=== PATIENT | female | born 1955 | race Caucasian/White ===

== ENCOUNTER 2020-08-08 09:14 | Outpatient (REF) | payer MEDICARE, SELFPAY ==
[2020-08-08 11:24] LABS: Hematocrit 42.4 % (37-47); Hemoglobin 14.1 g/dl (12.0-16.0); Mean Corpuscular HGB Conc 33.3 g/dl (31.0-35.0); Mean Corpuscular Hemoglobin 31.5 pg (27.0-33.0); Mean Corpuscular Volume 94.9 fL (80-98); Mean Platelet Volume 11.3 fL (9.4-12.3); Platelet Count 191 X10*3/uL (160-400); Red Blood Count 4.47 X10*6/uL (4.20-5.50); Red Cell Distribution Width 12.5 % (11.0-16.0); White Blood Count 5.7 X10*3/uL (4.8-10.8)
[2020-08-08 11:26] LABS: Glucose Urine UA NEG (NEG); Leukocyte Esterase Urine 1+ (NEG); Nitrite Urine NEG (NEG); Urine Blood NEG (NEG); Urine Ketones NEG (NEG); Urine Protein NEG (NEG-TRACE)
[2020-08-08 11:41] LABS: Appearance Urine HAZY; Color Urine YELLOW
[2020-08-08 11:52] LABS: Alanine Aminotransferase 22 U/L (0-31); Albumin Level 4.3 g/dL (3.5-5.0); Alkaline Phosphatase 64 U/L (39-117); Anion Gap 14 (12-20); Aspartate Amino Transferase 20 U/L (5-31); Bilirubin Total 0.7 mg/dL (0.0-1.0); Blood Urea Nitrogen 16 mg/dL (9-16); Calcium 8.9 mg/dL (8.4-10.2); Carbon Dioxide 28 mmol/L (22-29); Chloride 106 mmol/L (96-108); Cholesterol 164 mg/dL; Estimated Glomerular Filt Rate > 60; Glucose Fasting 81 mg/dL (60-99); HDL Cholesterol 48 mg/dL; LDL Cholesterol Calculated 106 mg/dl; Potassium 4.6 mmol/l (3.3-5.1); Sodium 143 mmol/L (135-145); Total Protein 6.8 g/dL (6.5-8.0); Triglycerides 50 mg/dL
[2020-08-08 12:00] LABS: Thyroid Stimulating Hormone 2.07 uIU/mL (0.32-4.0); Vitamin D 25-OH Total 28.9 ng/mL (>30)
[2020-08-08 12:15] LABS: RBC Urine 0 /HPF (0)
[2020-08-08 12:16] LABS: Squamous Epithelial Cell Urine 1+ /LPF
== END 2020-08-08 09:15 | disposition home or self-care (01) ==
LOC: HO.HMGCLDS 09:14
PROVIDERS: PCP Internal Medicine; Visit Provider Internal Medicine
DX: E78.5 Hyperlipidemia, unspecified (principal); I10 Essential (primary) hypertension; E55.9 Vitamin D deficiency, unspecified
CPT/HCPCS: 36415; 80053; 80061; 81001; 82306; 84443; 84550; 85027

== ENCOUNTER 2021-02-18 06:29 | Outpatient (REF) | payer MEDICARE, SELFPAY ==
[2021-02-18 12:05] LABS: Alanine Aminotransferase 24 U/L (0-31); Albumin Level 4.3 g/dL (3.5-5.0); Alkaline Phosphatase 65 U/L (39-117); Anion Gap 12 (12-20); Aspartate Amino Transferase 21 U/L (5-31); Bilirubin Total 0.5 mg/dL (0.0-1.0); Blood Urea Nitrogen 16 mg/dL (9-16); Calcium 9.1 mg/dL (8.4-10.2); Carbon Dioxide 28 mmol/L (22-29); Chloride 108 mmol/L (96-108); Cholesterol 170 mg/dL; Estimated Glomerular Filt Rate > 60; Glucose Fasting 84 mg/dL (60-99); HDL Cholesterol 44 mg/dL; LDL Cholesterol Calculated 109 mg/dl; Potassium 4.3 mmol/L (3.3-5.1); Sodium 144 mmol/L (135-145); Total Protein 6.6 g/dL (6.5-8.0); Triglycerides 88 mg/dL
== END 2021-02-18 06:30 | disposition home or self-care (01) ==
LOC: HO.HMGCLDS 06:29
PROVIDERS: PCP Internal Medicine; Visit Provider Internal Medicine
DX: E78.5 Hyperlipidemia, unspecified (principal); I10 Essential (primary) hypertension
CPT/HCPCS: 36415; 80053; 80061

== ENCOUNTER → 2021-05-05 09:02 | Outpatient (BNVA) | payer MEDICARE, SELFPAY | PROVIDERS: PCP Internal Medicine; Referring Provider Internal Medicine; Visit Provider Nurse Practitioner | DX: Z12.11 Encounter for screening for malignant neoplasm of colon (principal); Z83.71 Family history of colonic polyps | CPT/HCPCS: Q3014 ==

== ENCOUNTER 2021-07-08 07:19 | Day surgery (SDC) | payer MEDICARE, SELFPAY ==
[2021-07-02 15:25] VITALS: BMI 25.7
--- NOTE | 2021-07-07 09:55 | P.CONAN_ITS ---
Documented by User: Loren Frank NP 07/07/21 09:55 HPI - Anesthesia Eval Consult details Narrative: 66yo F for Colonoscopy PMFSH Active Problems Active Problems: All Active Problems (Updated 05/05/21 @ 10:06 by YUDELKA Oliveira) Family history of polyps in the colon (Acute) Colon cancer screening (Acute) Annual physical exam (Acute) Hypertension (Acute) Hyperlipidemia (Acute) Past Medical History Medical History Annual physical exam Anxiety History of mammogram Hyperlipidemia Hypertension Spondylosis of lumbar region without myelopathy or radiculopathy Thyroid nodule Vitamin D deficiency Family History Family History Father No problems noted. Mother Heart problem Surgical History Surgical History (Updated 07/08/21 @ 07:39 by Nadja Hunt RN) H/O colonoscopy History of partial hysterectomy History of removal of skin mole Hx of tonsillectomy No pertinent past surgical history Social History Social History Housing: House Patient Tobacco Use Status: Never used Tobacco e-Cigarette/Vaping Use: Never Used Use of substances other than those prescribed or required for medical reasons: No Are you DNR?: No Advance Directives: No Advance Directives Information Provided: Yes service: No Current occupational status: retired Meds Allergies Allergy/AdvReac Type Severity Reaction Status Date / Time naproxen AdvReac Unknown stomach Verified 05/26/21 12:51 upset Home Medications Medication Instructions Recorded Confirmed Last Taken Type estradiol 10 mcg vaginal tablet mcg VAGINAL 02/24/21 05/26/21 Unknown History coenzyme Q10 100 mg capsule 100 mg PO DAILY 05/26/21 05/26/21 Unknown History (CoQ-10) Exam Exam Date and Time: July 07, 2021 0955 Height,Weight and Vital Signs: Height 5 ft 2 in Weight 63.957 kg Assessment and Plan Assessment Anesthesia Assessment: Chart Reviewed Documented by User: Alena Rutledge MD 07/08/21 08:06 [facility] Past Medical History Medical History Annual physical exam Anxiety History of mammogram Hyperlipidemia Hypertension Spondylosis of lumbar region without myelopathy or radiculopathy Thyroid nodule Vitamin D deficiency Family History Family History Father No problems noted. Mother Heart problem Family history of problems with anesthesia: No Surgical History Surgical History (Updated 07/08/21 @ 07:39 by Nadja Hunt, RN) H/O colonoscopy History of partial hysterectomy History of removal of skin mole Hx of tonsillectomy No pertinent past surgical history History of Problems with Anesthesia: No Social History Social History Housing: House Patient Tobacco Use Status: Never used Tobacco e-Cigarette/Vaping Use: Never Used Use of substances other than those prescribed or required for medical reasons: No Are you DNR?: No Advance Directives: No Advance Directives Information Provided: Yes service: No Current occupational status: retired Meds Allergies Allergy/AdvReac Type Severity Reaction Status Date / Time naproxen AdvReac Unknown stomach Verified 05/26/21 12:51 upset Home Medications Medication Instructions Recorded Confirmed Last Taken Type estradiol 10 mcg vaginal tablet mcg VAGINAL 02/24/21 05/26/21 Unknown History coenzyme Q10 100 mg capsule 100 mg PO DAILY 05/26/21 05/26/21 Unknown History (CoQ-10) Exam Airway Mallampati Class: II TM Dist: >3cm Neck ROM: Full Loose/Missing/Broken Teeth: No Heart: RRR Lungs: bl breath sounds Assessment and Plan Assessment Anesthesia Assessment: Anesthesia Plan Discussed and Chart Reviewed Final Anesthetic Review Family History of Problems with Anesthesia: No History of Problems with Anesthesia: No NPO: Yes ASA Class: II Final Preanesthetic Review: No Changes in Pt Med Stat, Meds/Allgs Chart Reviewed and Consent Obtained/Reviewed Patient Risk: Intermediate Procedure Risk: Intermediate Anesthetic Plan Anesthetic Plan: MAC: Disposition: Standard PACU
[2021-07-08 07:55] VITALS: BP 156/86; PULSE 79; RESP 16; TEMP 36.6; O2SAT 99
[2021-07-08] MEDS: Lactated Ringers 1,000 ML 100 ML IVCONT (08:04)
--- NOTE | 2021-07-08 08:23 | P.HPSUR_ITS ---
Pre-Procedural Eval Section A Date of Service: 07/08/21 Section B Chief Complaint: Screening,Fhx of colon polyps Details of Present Illness: brother with colon polyps Relevant Family History (Specify if Yes): Yes Relevant Social History: None Present Medications: see Short Stay Collaborative assessment Medical History: Significant History (Anxiety History of mammogram Hyperlipid emia Hypertension Spondylosis of lumbar region without myelopathy or radiculopathy Thyroid nodule Vitamin D deficiency) History of Previous Operations: Relevant previous surgery/procedure and date(s) (H/O colonoscopy History of partial hysterectomy History of removal of skin mole Hx of tonsillectomy) Allergies: Allergies Allergy/AdvReac Type Severity Reaction Status Date / Time naproxen AdvReac Unknown stomach Verified 05/26/21 12:51 upset Review of Systems Sugical H&P ROS: Negative: Constitution, Cardiovascular, Respiratory, Neurological, Psychiatric, Hem-Onc, Allergic/Immunologic, Gastrointestinal, Genitourinary, Musculoskeletal, Integumentary, Endocrine and Eyes/Ears/Nose/Throat Exam Surgical H&P Exam: Normal: HEENT, Normal: Heart, Normal: Lungs, Normal: Extremities, Normal: Abdomen, Normal: Skin and Normal: Neurological Plan Diagnosis/Plan: Unchanged I have reviewed the history and physical and performed a pertinent physical examination on my patient. No changes have occurred unless specified.
--- NOTE | 2021-07-08 08:25 | P.OP_ITS ---
Operative Note Operative Note Date of Service: 07/08/21 Narrative: Operative Information Procedure Description: Colonoscopy COLONOSCOPY Instrument: Olympus variable stiffness pediatric scope 190L Colonoscopy Monitoring: Vital signs and clinical assessment, continuous EKG monitoring, Pulse oximetry, Carbon Dioxide monitoring and blood pressure monitoring were done throughout the procedure. Colon withdrawal time was 12 minutes. Procedure: The patient was placed in the left lateral decubitis position and pre-procedure medications were administered. After a digital rectal examination of the ano-rectum, the video colonoscope was inserted into the rectum and advanced through the colon to the cecum/TI. The colonoscope was slowly withdrawn in a retrograde panoramic fashion and the colon mucosa was carefully examined including a retroflexed view of the rectum. Findings and interventions are described below. Procedure Difficulty: easy Findings: Terminal Ileum-normal Cecum: 10 mm flat linear polyp raised with orise and then removed with cold snare. x 2 sessile polyps 6-8 mm removed with forceps, x 1 diverticulum noted in cecum Ascending Colon: normal Transverse Colon -normal Descending Colon:normal Sigmoid Colon: normal Rectum: Retroflexion with small internal hemorrhoids, grade I Anorectum - normal Colon preparation: York Bowel Preparation Scale Right colon; 3 Transverse colon: 2 Left colon; 2 (0 = Unprepared colon segment with mucosa not seen due to solid stool that cannot be cleared. 1 = Portion of mucosa of the colon segment seen, but other areas of the colon segment not well seen due to staining, residual stool and/or opaque liquid. 2 = Minor amount of residual staining, small fragments of stool and/or opaque liquid, but mucosa of colon segment seen well. 3 = Entire mucosa of colon segment seen well with no residual staining, small f ragments of stool or opaque liquid) Impression and Post Procedure Diagnosis: polyps internal hemorrhoids Plan: High fiber diet leaflet Avoid straining at stool, epsom salts and sitz bath, anusol supps or cream Repeat Colonoscopy in 5 years due to polyps today and FH of polyps or earlier if clinically indicated Above findings were reviewed with the patient and relevant handouts were provided if indicated.
--- NOTE | 2021-07-08 08:25 | P.BOP_ITS ---
Brief Operative Note Date of Service: 07/08/21 Pre-op diagnosis: colon screen Post-op diagnosis: same Procedure: see op note Surgeon: Carole Maharaj MD Anesthesia: MAC Was an School Transportation Director used for this Procedure?: No Estimated blood loss (mL): 0 Condition: stable Disposition: PACU
[2021-07-08 08:56] VITALS: BP 105/60; PULSE 73; RESP 14; TEMP 36.4; O2SAT 98
[2021-07-08 09:11] VITALS: BP 118/75; PULSE 77; RESP 17; TEMP 36.4; O2SAT 100
--- NOTE | 2021-07-08 09:53 | PC.NURSE ---
Dr Maharaj spoke with patient in Discharge area re: results of procedure
== END 2021-07-08 09:50 | disposition home or self-care (01) ==
PROVIDERS: PCP Internal Medicine; Visit Provider Internal Medicine Gastroenterology
PROC: 0DJD8ZZ Inspection of Lower Intestinal Tract, Via Natural or Artificial Opening Endoscopic (ICD-10-PCS; CPT 45378; principal; 2021-07-08 08:30)
DX: Z12.11 Encounter for screening for malignant neoplasm of colon (principal); Z83.71 Family history of colonic polyps; D12.0 Benign neoplasm of cecum; K64.0 First degree hemorrhoids; I10 Essential (primary) hypertension; E55.9 Vitamin D deficiency, unspecified; Z79.899 Other long term (current) drug therapy
CPT/HCPCS: 45385; 45380; 45381; 88305

== ENCOUNTER → 2021-07-21 11:02 | Outpatient (BNVA) | payer MEDICARE, SELFPAY | PROVIDERS: PCP Internal Medicine; Referring Provider Internal Medicine; Visit Provider Nurse Practitioner | DX: K64.8 Other hemorrhoids (principal); K57.30 Diverticulosis of large intestine without perforation or abscess without bleeding; D12.6 Benign neoplasm of colon, unspecified; I10 Essential (primary) hypertension; E78.5 Hyperlipidemia, unspecified; E55.9 Vitamin D deficiency, unspecified; Z83.71 Family history of colonic polyps; Z88.8 Allergy status to other drugs, medicaments and biological substances | CPT/HCPCS: 99212 ==

== ENCOUNTER 2021-11-16 09:08 | Outpatient (REF) | payer MEDICARE, SELFPAY ==
[2021-11-16 11:27] LABS: MANUAL DIFF FLAG NO
[2021-11-16 11:50] LABS: Basophils Percent Auto 0.6 % (0-2); Eosinophils Absolute Auto 0.1 X10*3/uL (0.0-0.4); Eosinophils Percent Auto 1.9 % (0-4); Hematocrit 44.7 % (37.0-47.0); Hemoglobin 14.6 g/dl (12.0-16.0); Imm Gran Abs Auto 0.02 X10*3/uL (0.00-0.03); Imm Gran Pct Auto 0.4 % (0.0-0.4); Lymphocytes Absolute Auto 1.6 X10*3/uL (1.2-4.9); Lymphocytes Percent Auto 30.6 % (20-40); Mean Corpuscular HGB Conc 32.7 g/dl (31.0-35.0); Mean Corpuscular Hemoglobin 31.6 pg (27.0-33.0); Mean Corpuscular Volume 96.8 fL (80.0-98.0); Mean Platelet Volume 12.1 fL (9.4-12.3); Monocytes Absolute Auto 0.3 X10*3/uL (0.1-1.2); Monocytes Percent Auto 5.7 % (2-11); Neutrophils Absolute Auto 3.2 x10*3/uL (2.0-8.3); Neutrophils Percent Auto 60.8 % (45-73); Platelet Count 199 X10*3/uL (160-400); Red Blood Count 4.62 X10*6/uL (4.20-5.50); Red Cell Distribution Width 12.7 % (11.0-16.0); White Blood Count 5.3 X10*3/uL (4.8-10.8)
[2021-11-16 12:10] LABS: Alanine Aminotransferase 19 U/L (0-31); Albumin Level 4.5 g/dL (3.5-5.0); Alkaline Phosphatase 61 U/L (39-117); Anion Gap 12 (12-20); Aspartate Amino Transferase 18 U/L (5-31); Bilirubin Total 0.7 mg/dL (0.0-1.0); Blood Urea Nitrogen 13 mg/dL (9-16); Calcium 9.4 mg/dL (8.4-10.2); Carbon Dioxide 30 mmol/L (22-29); Chloride 106 mmol/L (96-108); Cholesterol 196 mg/dL; Estimated Glomerular Filt Rate > 60; Glucose Fasting 89 mg/dL (60-99); HDL Cholesterol 47 mg/dL; LDL Cholesterol Calculated 133 mg/dl; Potassium 4.5 mmol/L (3.3-5.1); Sodium 143 mmol/L (135-145); Total Protein 6.8 g/dL (6.5-8.0); Triglycerides 82 mg/dL
[2021-11-16 12:13] LABS: Vitamin D 25-OH Total 29.2 ng/mL (>30)
== END 2021-11-16 09:09 | disposition home or self-care (01) ==
LOC: HO.HMGCLDS 09:08
PROVIDERS: PCP Internal Medicine; Visit Provider Internal Medicine
DX: Z00.00 Encounter for general adult medical examination without abnormal findings (principal); E55.9 Vitamin D deficiency, unspecified; E78.5 Hyperlipidemia, unspecified; I10 Essential (primary) hypertension
CPT/HCPCS: 36415; 80053; 80061; 82306; 84443; 85025

== ENCOUNTER → 2021-12-17 08:52 | Outpatient (REF) | payer MEDICARE, SELFPAY ==
--- NOTE | 2021-12-17 08:56 | CA_ITS ---
Acquisition Time: 2021-12-17 09:13:23 Total Exercise Time: 00:09:23 Test Indications: Chest Pain Medications: SEE CHART Protocol: CHIRAG Max HR: 141 BPM 92% of Pred: 152 BPM Max BP: 150/088 mmHG Max Work Load: 10.6 METS Exercise stress test with exercise 9 min 23 sec of Chirag protocol, achieving 92% MPHR, 10.6 METs, without anginal symptoms, without arrythmia, with normotensive response to exercise. without EKG changes meeting criteria for ischemia. Test reviewed with Dr Knapp. Referred By: Gertrude Mahan Overread By: KAMILA CURRIE
== END ==
LOC: HO.CARD 08:52
PROVIDERS: Visit Provider Internal Medicine
DX: R07.9 Chest pain, unspecified (principal); I10 Essential (primary) hypertension; E78.5 Hyperlipidemia, unspecified
CPT/HCPCS: 93017

== ENCOUNTER 2022-05-25 08:36 | Outpatient (REF) | payer MEDICARE, SELFPAY ==
[2022-05-25 11:37] LABS: Hematocrit 43.9 % (37.0-47.0); Hemoglobin 14.7 g/dl (12.0-16.0); Mean Corpuscular HGB Conc 33.5 g/dl (31.0-35.0); Mean Corpuscular Hemoglobin 31.5 pg (27.0-33.0); Mean Platelet Volume 11.4 fL (9.4-12.3); Platelet Count 207 X10*3/uL (160-400); Red Blood Count 4.67 X10*6/uL (4.20-5.50); Red Cell Distribution Width 12.4 % (11.0-16.0)
[2022-05-25 12:02] LABS: Alanine Aminotransferase 24 U/L (0-31); Albumin Level 4.6 g/dL (3.5-5.0); Alkaline Phosphatase 69 U/L (39-117); Anion Gap 15 (12-20); Aspartate Amino Transferase 23 U/L (5-31); Bilirubin Total 0.8 mg/dL (0.0-1.0); Blood Urea Nitrogen 11 mg/dL (9-16); Calcium 9.2 mg/dL (8.4-10.2); Carbon Dioxide 26 mmol/L (22-29); Chloride 104 mmol/L (96-108); Cholesterol 173 mg/dL; Estimated Glomerular Filt Rate > 60; Glucose Fasting 89 mg/dL (60-99); HDL Cholesterol 46 mg/dL; LDL Cholesterol Calculated 111 mg/dl; Potassium 4.4 mmol/L (3.3-5.1); Sodium 141 mmol/L (135-145); Total Protein 7.1 g/dL (6.5-8.0); Triglycerides 82 mg/dL
== END 2022-05-25 08:37 | disposition home or self-care (01) ==
LOC: HO.HMGCLDS 08:36
PROVIDERS: PCP Internal Medicine; Visit Provider Internal Medicine
DX: E78.5 Hyperlipidemia, unspecified (principal); I10 Essential (primary) hypertension
CPT/HCPCS: 36415; 80053; 80061; 85027

== ENCOUNTER → 2022-12-29 10:49 | Outpatient (REF) | payer MEDICARE, SELFPAY ==
--- NOTE | 2022-12-29 10:52 | CA_ITS ---
Transthoracic Echocardiogram Patient (Last, First, Middle): Donal Snow, Gender: Female Date of : 1955 Age: 67 Procedure Date: 12/29/2022 Procedure Type: Transthoracic Echocardiogram Location: OP Height: 157.48 cm Weight: 67.13 kg BSA: 1.68 m2 Heart Rate: 79 bpm BP: 134 / 70 mmHg [employer] Instruments Inspector: SB Referring MD: Gertrude Mahan MD Symptoms: R07.9 - Chest pain, unspecified Study Quality: Fair apical window due to breast implant ECG Rhythm: Sinus Conclusions: - The left ventricular systolic function is normal. The visually estimated ejection fraction is between 60-65%. - No obvious valvular pathology seen on this study. - Technically difficult study. Findings Procedure Information Contrast agent, definity, is being given per protocol without apparent complications. The quality of the study was technically difficult. Left Ventricle Normal left ventricular cavity size. There is normal left ventricular wall thickness. The left ventricular systolic function is normal. The visually estimated ejection fraction is between 60-65%. There is no evidence of regional wall motion abnormalities. Diastolic function is normal for age. Right Ventricle The right ventricle was not well visualized. Atria Both atria are normal in size. Aortic Valve There is a normal trileaflet aortic valve. There is no aortic valve stenosis. There is no aortic valve regurgitation. Mitral Valve The mitral valve was not well visualized. There is no mitral valve regurgitation. There is no mitral valve stenosis. Pulmonic Valve The pulmonic valve is likely normal. Tricuspid Valve There is trace tricuspid valve regurgitation. There is no evidence of pulmonary hypertension. Great Vessels The asc aorta is normal in size. Venous The inferior vena cava is normal in size and collapses greater than 50% with inspiration. Pericardium/Pleural There is no evidence of pericardial effusion. Prior Study Comparison No prior study available for comparison. Recommendations, Care & Conclusions No obvious valvular pathology seen on this study. Measurements 2D Linear Measurements IVSd: 1.00 0.6-0.9/0.6-1.0 cm LVIDd: 3.72 3.9-5.3/4.2-5.9 cm LVIDd Index: 2.21 2.4-3.2/2.2-3.1 cm/m2 LVIDs: 2.30 2.0-3.6 cm LVPWd: 0.65 0.7-1.1 cm LA Diam: 2.90 2.7-3.8/3.0-4.0 cm LAIDs Index: 1.73 1.5-2.3 cm/m2 LV Mass: 107.60 67-162/88-224 g LV Mass Index: 64.05 43-95/49-115 g/m2 LVOT Diam: 1.90 3.0+(-)1.3 cm Mitral Valve MV Pk E: 0.82 MV PK A: 0.86 MV Decel Time: 188.00 E/A: 1.00 E'Lateral: 8.59 E'Medial: 6.53 E/E' Med: 12.60 E/E' Lat: 9.60 PHT: 55.00 MVA PHT: 4.00 Decel [place]: 4.38 Aortic Valve AoV Pk Richar: 1.21 AoV Mn Richar: 0.86 AoV VTI: 0.26 AoV Pk Grad: 6.00 Aov Mn Grad: 3.00 ROBBY Cont.VTI: 1.86 LVOT LVOT Pk Richar: 0.82 LVOT Mn Richar: 0.54 LVOT VTI: 0.17 LVOT Pk Grad: 3.00 LVOT Mn Grad: 1.00 LVOT Diam: 1.90 LVOT Area: 2.84 Diastolic Function MV Pk E: 0.82 MV Pk A: 0.86 E/A: 1.00 E'Medial: 6.53 E/E' Med: 12.60 E' Laterial: 8.59 E/E' Lat: 9.60 Right Ventricle TVS' Richar: 7.40 Tricuspid Valve RA Press: 3.00 Great Vessels Aorta Sinus of Valsalva: 2.60 2.0-3.5 cm Ao Asc: 2.80 2.1-3.4 cm Pulmonary Valve PV Pk Richar: 1.15 Peak PV Grad: 5.00 Updated in Other Vendor System with Status of Final Kg Knapp MD electronically signed on 12/30/2022 11:36:32 AM with status of Final
== END ==
LOC: HO.CARD 10:49
PROVIDERS: Visit Provider Internal Medicine
DX: R07.9 Chest pain, unspecified (principal); R01.1 Cardiac murmur, unspecified
CPT/HCPCS: 93306; Q9957

== ENCOUNTER 2023-01-06 12:57 | Outpatient (REF) | payer MEDICARE, SELFPAY ==
--- NOTE | ~2023-01-06 | XR_ITS ---
EXAMINATION: XR BILATERAL HIPS CLINICAL INFORMATION: Pain COMPARISON: None available. TECHNIQUE: AP and frog-leg view of both hips FINDINGS: Bone alignment is normal. No fracture or dislocation. The hip joints are normal. Mild atherosclerotic disease. Soft tissues are otherwise normal. XR/XR hips BENITO min 3V IMPRESSION: Normal-appearing hip joints.
== END 2023-01-06 12:58 | disposition home or self-care (01) ==
LOC: HO.HMGCX 12:57
PROVIDERS: PCP Internal Medicine; Visit Provider Internal Medicine
DX: M25.551 Pain in right hip (principal)
CPT/HCPCS: 73522

== ENCOUNTER 2023-02-14 09:52 | Outpatient (REF) | payer MEDICARE, SELFPAY ==
--- NOTE | ~2023-02-14 | XR_ITS ---
EXAMINATION: XR KNEE AP STANDING CLINICAL INFORMATION: Pain COMPARISON: None available. TECHNIQUE: AP bilateral standing view of the knees was obtained. Lateral views were also obtained of bilateral knees. FINDINGS: Right knee: Trace joint effusion. Tiny posterior patellar osteophytes. Minimal medial joint space narrowing. Left knee: Trace joint effusion. Minimal medial joint space narrowing. Tiny posterior patellar osteophytes XR/XR knee standing BI IMPRESSION: 1. Minimal degenerative changes right knee. 2. Minimal degenerative changes left knee.
== END 2023-02-14 09:53 | disposition home or self-care (01) ==
LOC: HO.HMGCX 09:52
PROVIDERS: PCP Internal Medicine; Visit Provider Internal Medicine
DX: M25.561 Pain in right knee (principal); M25.562 Pain in left knee
CPT/HCPCS: 73565

== ENCOUNTER 2023-03-09 10:00 | Outpatient (RCR) | payer MEDICARE, SELFPAY ==
--- NOTE | 2023-02-01 15:01 | MHC.PT.EP ---
[facility] [place] Office [place] Office [place] Office [address] Marian Mendez [address] [phone] F: [phone] F: [phone] F: [phone] F: [phone] Physical Therapy Plan of Care Date of Evaluation: Date of Surgery: Diagnosis: This is a 67 yo female presenting to skilled PT with a script for pain in R hip Assessment: This is a 67 yo female presenting to skilled PT with a script for pain in R hip. Patient reporting ongoing pain for about 2 months now insidiously. Pain is located at the R side lateral hip, runs laterally down the leg and then wraps around posteriorly into the gastroc. Pain is described as achy and sharp, denies numbness and tingling. Denies back pain but has had knee pain prior to the hip pain that is getting worse now as well. She feels functionally limited with transferring into car (needs to cloth picker her limb with her hands), standing and walking, stairs (descending and ascending), squatting and transfers sit<>stands. Assessment reveals pain that ranges from a 4-6/10. Patient demos decreased hip and lumbar ROM, strength of gluts and hip muscles and TTP at ITB. She demos poor squat form, lifting techniques and compensates with transfers. Based on functional limitations, impaired QOL and pain tolerance patient is a good candidate for skilled PT 2x/wk for 4wks but would like to start with 1x/wk for 4wks and continue to update HEP. 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 Manual therapy to restore motion and function. Therapeutic exercise to improve strength and flexibility. Neuromuscular re-education for posture and balance. Therapeutic activities to return to functional activities of daily living. Electronically signed by: Lisseth Graham PT Please sign and return to therapist. Thank you for your referral.
--- NOTE | 2023-04-07 10:54 | MHC.PT.DC ---
[facility] [place] Office [place] Office [place] Office [address] Mendez [address] [phone] F: [phone] F: [phone] F: [phone] F: [phone] Physical Therapy Discharge Report Diagnosis: This is a 67 yo female presenting to skilled PT with a script for pain in R hip Date of Surgery: Date of Evaluation: 02/01/23 Date of Discharge: 04/07/23 Treatments to Date: 6 Cancellations to Date: 0 No Shows to Date: 0 Discharge Status: Achieved Goals Improved Function Independent with HEP Discharge Summary: Patient with improved pain, ROM and strength. She demos good gait pattern now and reports ability to get in and out of the car without pain or functional limitations. She has an HEP to continue on her own and is appropriate for DC at this time. Chart was closed after 30 days Electronically signed by: Lisseth Graham PT Please sign and return to therapist. Thank you for your referral.
== END 2023-04-07 10:54 | disposition home or self-care (01) ==
LOC: HO.PTCHIC 10:00
PROVIDERS: PCP Internal Medicine; Visit Provider Internal Medicine
DX: M25.551 Pain in right hip (principal)
CPT/HCPCS: 97110; 97140; 97162

== ENCOUNTER 2023-03-17 08:56 | Outpatient (AMB) | payer MEDICARE, SELFPAY ==
--- NOTE | 2023-03-17 08:59 | A.OFFVIS_ITS ---
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 Patient reports that she has had ongoing knee pain for about years now. right knee > than left knee pain. She taking ibuprofen for her pain which does not offer much relief. She finds that her pain is increased with going up and down the stairs. 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 She denies any pain when walking on flat ground She finds no relief from Ibuprofen. [facility] Medical History (Updated 03/17/23 @ 09:13 by Kalin Rajan) Annual physical exam Anxiety Chest pain at rest Hearing loss History of mammogram Hyperlipidemia Hypertension Spondylosis of lumbar region without myelopathy or radiculopathy Thyroid nodule Vitamin D deficiency Surgical History H/O colonoscopy History of partial hysterectomy History of removal of skin mole Hx of tonsillectomy No pertinent past surgical history Family History Father No problems noted. Mother Heart problem Brother Mental health disorder Social History Housing: House Patient Tobacco Use Status: Never used Tobacco e-Cigarette/Vaping Use: Never Used service: No Current occupational status: retired Cognitive needs: No Hearing needs: No Vision needs: Yes Review of Systems Const All systems reviewed & are unremarkable except as noted in HPI and below Physical Exam Vital Signs: BMI result Body Mass Index 27.1 Const General: no acute distress, alert and awake Orientation/consciousness: patient oriented x3 HEENT Head: Yes normocephalic and Yes atraumatic Eyes EOM: EOMs intact bilaterally Resp Effort & Inspection: normal respiratory effort and able to speak in complete sentences Cardio Jugular venous distension: no JVD Skin General skin exam: turgor normal Rashes: no rashes Neuro General: patient oriented x3 Extrem Other: Right Knee: Full ROM Mild retropatellar TTP Pain with dynamic step-down Left knee exam unremarkable Psych Appearance: grossly normal Affect: normal affect Attitude: cooperative Office Procedures Joint Injection/Drain Joint Injection/Drain Details: Injected 1 mL of Decadron and 3 mL 1% lidocaine and 3 mL of 0.25% Marcaine. Site was prepped using aseptic technique. Patient tolerated the procedure well. Primary Site: right knee Approach Used: anterolateral Coding - Large joint Procedure code (CPT) selection complete Results Reviewed Results Reviewed: 03/17/23 09:16 BUPivacaine MPF 0.25 % [Sensorcaine-MPF 0.25% 10 ML] 10 ml .ROUTE .STK-MED ONE Lidocaine HCl 2 % MPF [Xylocaine 2 % MPF] 5 ml .ROUTE .STK-MED ONE dexAMETHasone sod phosphate [Decadron] 4 mg .ROUTE .STK-MED ONE I personally reviewed relevant radiographs. 1. Minimal degenerative changes right knee. 2. Minimal degenerative changes left knee. Assessment & Plan Assessment & Plan (1) Patellofemoral arthritis of right knee: Code(s): M17.11 - Unilateral primary osteoarthritis, right knee Plan: This is a 68 year old woman with right PF OA. She has pain primarily with using stairs, with no pain when ambulating on even ground. I discussed her diagnosis and treatment options. I recommend quad and gluteal strengthening exercises and she minimize her use of stairs where possible. I injected her right knee today, which she tolerated well. She can follow up prn, if her symptoms persist or worsen we may consider PT. Plan Scribed for Ruel Gore MD by Kalin Rajan, medical collections, on 03/17/23 at 9:15 AM, EST. Coding Level of Care Code New Pt Level 3 (85936) Diagnoses Patellofemoral arthritis of right knee M17.11 CPT Codes Coding - Large joint: 73960 - Large joint ([id number])
[2023-03-17 09:00] VITALS: BMI 27.1
== END 2023-03-17 09:39 | disposition home or self-care (01) ==
PROVIDERS: PCP Internal Medicine; Visit Provider Orthopaedic Surgery
DX: M17.11 Unilateral primary osteoarthritis, right knee (principal)
CPT/HCPCS: 20610; 99204

== ENCOUNTER → 2023-03-17 08:56 | Outpatient (BNVA) | payer MEDICARE, SELFPAY | PROVIDERS: PCP Internal Medicine; Visit Provider Orthopaedic Surgery | DX: M17.11 Unilateral primary osteoarthritis, right knee (principal); M25.561 Pain in right knee; M25.562 Pain in left knee | CPT/HCPCS: 20610; J1100 ==

== ENCOUNTER 2023-04-01 09:44 | Outpatient (REF) | payer MEDICARE, SELFPAY ==
--- NOTE | ~2023-04-01 | MM_ITS ---
EXAMINATION: BONE DENSITOMETRY CLINICAL INDICATION: Postmenopausal. COMPARISON: This is the patient's baseline examination. TECHNIQUE: Using a [employer] In[employer] DXA System (software version: 13.1) manufactured by [employer], dual-energy x-ray absorptiometry was performed of the lumbar spine and left hip. The images are of good technical quality. Summary results are attached. FINDINGS: LEFT FEMUR, NECK: BMD 0.904 g/cm2, Z-score 0.7, T-score -1.0, normal. LEFT FEMUR, TOTAL: BMD 1.024 g/cm2, Z-score 1.6, T-score 0.1, normal. AP SPINE L1-L4: BMD 1.015 g/cm2, Z-score 0.3, T-score -1.4, osteopenia. IDENTIFIED RISK FACTORS: Menopause, hysterectomy. HISTORY OF FRACTURE: None listed. MEDICATIONS: Multivitamin, vitamin D. MM/XR DEXA axial skeleton IMPRESSION: 1. DIAGNOSIS: Osteopenia based on the lowest T-score value of -1.4 in the lumbar spine applying World Health Organization criteria. 2. 10-YEAR FRACTURE RISK PREDICTION, FRAX: Major osteoporotic fracture (clinical spine, forearm, hip or shoulder) 8.7%. Hip fracture 0.9%. 3. Treatment Recommendations: NOF guidelines recommend consideration for treatment in postmenopausal women and men age 50 and older presenting with the following: -A hip or vertebral (clinical or morphometric) fracture. -T-score less than or equal to -2.5 at the femoral neck or spine after appropriate evaluation to exclude secondary causes. -Low bone mass at the hip or spine and a 10-year fracture probability by FRAX of greater than or equal to 3% for hip fracture or greater than or equal to 20% for major osteoporotic fracture based on the [place] adapted WHO algorithm. 4. Other Recommendations: All treatment decisions require clinical judgment and consideration of individual patient factors, including patient preferences, comorbidities, previous drug use, risk factors not captured in the FRAX model (e.g. frailty, falls, vitamin D deficiency, increased bone turnover, interval significant decline in bone density) and possible under or overestimation of fracture risk by FRAX. Additional medical evaluation for secondary cause of low bone mineral density may be appropriate. FUTURE SCAN RECOMMENDATION: People with diagnosed cases of osteoporosis or at high risk for fracture should have regular bone mineral density tests. For patients eligible for Medicare, routine testing is allowed once every 2 years. The testing frequency can be increased to one year for patients who have rapidly progressing disease, those who are receiving or discontinuing medical therapy to restore bone mass, or have additional risk factors.
== END 2023-04-01 09:45 | disposition home or self-care (01) ==
LOC: HO.MAMMO 09:44
PROVIDERS: Visit Provider Obstetrics & Gynecology
DX: Z13.820 Encounter for screening for osteoporosis (principal); Z78.0 Asymptomatic menopausal state
CPT/HCPCS: 77080

== ENCOUNTER → 2023-04-01 09:45 | Outpatient (BNV) | payer MEDICARE, SELFPAY | PROVIDERS: Visit Provider Radiology Diagnostic Radiology | DX: Z78.0 Asymptomatic menopausal state (principal) | CPT/HCPCS: 77080 ==

== ENCOUNTER 2023-05-26 07:45 | Outpatient (REF) | payer MEDICARE, SELFPAY ==
[2023-05-26 11:00] LABS: MANUAL DIFF FLAG NO
[2023-05-26 11:21] LABS: Basophils Absolute Auto 0.1 X10*3/uL (0.0-0.2); Basophils Percent Auto 0.8 % (0-2); Eosinophils Absolute Auto 0.1 X10*3/uL (0.0-0.4); Eosinophils Percent Auto 2.3 % (0-4); Hemoglobin 14.4 g/dl (12.0-16.0); Imm Gran Abs Auto 0.03 X10*3/uL (0.00-0.03); Imm Gran Pct Auto 0.5 % (0.0-0.4); Lymphocytes Absolute Auto 2.4 X10*3/uL (1.2-4.9); Lymphocytes Percent Auto 38.2 % (20-40); Mean Corpuscular HGB Conc 33.5 g/dl (31.0-35.0); Mean Corpuscular Hemoglobin 31.5 pg (27.0-33.0); Mean Corpuscular Volume 94.1 fL (80.0-98.0); Mean Platelet Volume 11.3 fL (9.4-12.3); Monocytes Absolute Auto 0.4 X10*3/uL (0.1-1.2); Monocytes Percent Auto 5.6 % (2-11); Neutrophils Absolute Auto 3.3 x10*3/uL (2.0-8.3); Neutrophils Percent Auto 52.6 % (45-73); Platelet Count 191 X10*3/uL (160-400); Red Blood Count 4.57 X10*6/uL (4.20-5.50); Red Cell Distribution Width 12.5 % (11.0-16.0); White Blood Count 6.2 X10*3/uL (4.8-10.8)
[2023-05-26 12:08] LABS: Alanine Aminotransferase 29 U/L (0-31); Albumin Level 4.3 g/dL (3.5-5.0); Alkaline Phosphatase 60 U/L (39-117); Anion Gap 13 (12-20); Aspartate Amino Transferase 21 U/L (5-31); Bilirubin Total 0.7 mg/dL (0.0-1.0); Blood Urea Nitrogen 14 mg/dL (9-16); Calcium 9.1 mg/dL (8.4-10.2); Carbon Dioxide 28 mmol/L (22-29); Chloride 105 mmol/L (96-108); Cholesterol 150 mg/dL (<200); Estimated Glomerular Filt Rate > 60; Glucose Fasting 90 mg/dL (60-99); HDL Cholesterol 42 mg/dL (>40); LDL Cholesterol Calculated 93 mg/dL (<100); Potassium 4.1 mmol/L (3.3-5.1); Sodium 142 mmol/L (135-145); TSH reflex Free T4 3.31 uIU/mL (0.32-4.0); Total Protein 6.8 g/dL (6.5-8.0); Triglycerides 78 mg/dL (<150)
== END 2023-05-26 07:46 | disposition home or self-care (01) ==
LOC: HO.HMGCLDS 07:45
PROVIDERS: PCP Internal Medicine; Visit Provider Internal Medicine
DX: I10 Essential (primary) hypertension (principal); E78.5 Hyperlipidemia, unspecified
CPT/HCPCS: 36415; 80053; 80061; 84443; 85025

== ENCOUNTER 2023-06-02 10:20 | Outpatient (AMB) | payer MEDICARE, SELFPAY ==
--- NOTE | 2023-06-02 10:21 | MHC.PC.OV ---
Vital Signs 06/02/23 10:22 Height 5 ft 2 in Weight 144 lb BMI 26.3 BP 120/74 Blood Pressure Location Lt brachial Position Sitting Pulse 86 Pulse Source Pulse Oximeter Pulse Oximetry (%) 97 Oxygen Delivery Method Room Air Intake Visit Reasons: Annual PE Intake Note: Pt is here today for PE. Pt states that she had pap done in January of this year at [facility]. Allergies naproxen Adverse Reaction (Unknown, Verified 06/02/23 10:23) stomach upset Medication List - Last Reconciled 06/02/23 by Gertrude Mahan MD atorvastatin 10 mg PO DAILY benazepril 10 mg PO DAILY coenzyme Q10 (CoQ-10) 100 mg PO DAILY ibuprofen 800 mg PO TID Tobacco use date assessed: 06/02/23 Fall risk assessment: No Falls in past year Last assessed Fall Risk: 06/02/23 Dental Screening Dental Screen Date: 06/02/23 Did you have a dental visit in the last 12 months?: Yes Did you have a dental problem in the last 6 months where you did not have access to dental care?: No Was dental information given to patient?: Patient has dentist HPI Annual PE HPI Details Pt presents for PE PFSH Medical History (Updated 06/02/23 @ 10:48 by Gertrude Mahan MD) Chest pain at rest Hearing loss Annual physical exam History of mammogram Hyperlipidemia Thyroid nodule Vitamin D deficiency Spondylosis of lumbar region without myelopathy or radiculopathy Anxiety Hypertension Surgical History Hx of tonsillectomy History of removal of skin mole History of partial hysterectomy H/O colonoscopy No pertinent past surgical history Family History Father No problems noted. Mother Heart problem Brother Mental health disorder Social History Housing: House Patient Tobacco Use Status: Never used Tobacco e-Cigarette/Vaping Use: Never Used service: No Current occupational status: retired Cognitive needs: No Hearing needs: No Vision needs: Yes Questionnaire Thrive Questionnaire Date Thrive assessed: 11/30/22 AUDIT C Alcohol Use Questionnaire (AUDIT-C) 1. How often do you have a drink containing alcohol?: Never 3. How often do you have six or more drinks on one occasion?: Never Total Score: 0 KANDY-7 AMB Questionnaire KANDY-7 Date KANDY - 7 assessed: 11/30/22 Source: Developed by Drs. Jorge Alberto Arauz, Clarissa Jacobson, Mehdi Leggett and colleagues, with an educational alfonso from [employer]. Review of Systems Const Reports no additional complaints Eyes Reports no additional complaints ENT Reports no additional complaints Card Reports no additional complaints Resp Reports no additional complaints GI Reports no additional complaints Reports no additional complaints Musc Reports no additional complaints Physical exam (Primary Care) Vital Signs: Last Vital Signs Pulse 86 06/02/23 10:22 BP 120/74 06/02/23 10:22 Pulse Ox 97 06/02/23 10:22 Oxygen Delivery Method Room Air 06/02/23 10:22 BMI result Body Mass Index 26.3 Tobacco/Smoking Status: Tobacco use Status Tobacco use date assessed 06/02/23 06/02/23 10:25 Patient Tobacco Use Status Never used Tobacco 06/02/23 10:25 e-Cigarette/Vaping Use Never Used 06/02/23 10:25 Thrive Assessment: Date of Thrive Assessment Date Thrive assessed 11/30/22 06/02/23 10:25 Const General: no acute distress HENMT Head: Yes normal to inspection Ears: hearing grossly normal bilaterally General nose exam: Normal external nose present Face and sinus: Yes normal facial exam Mouth: Normal oral and palatal mucosa present Throat: Yes posterior oropharynx normal Eyes General: appearance normal, both eyes and all related structures Neck Neck: Yes no lymphadenopathy and Yes supple Resp Effort & Inspection: normal respiratory effort Auscultation: clear to auscultation bilaterally Cardio Rhythm: regular rhythm Heart sounds: S1 normal heart sound present and S2 normal heart sound present GI Inspection: Yes normal to inspection Palpation (GI): Soft to palpation Percussion: Yes normal to percussion Auscultation: normal bowel sounds Assessment and Plan Assessment & Plan (1) Venous insufficiency: Code(s): I87.2 - Venous insufficiency (chronic) (peripheral) Plan: try compression stockings (2) Hypertension: Code(s): I10 - Essential (primary) hypertension Plan: cont Lisinopril (3) Hyperlipidemia: Code(s): E78.5 - Hyperlipidemia, unspecified Plan: cont statin (4) Annual physical exam: Code(s): Z00.00 - Encounter for general adult medical examination without abnormal findings Plan: well balanced diet, regular exercise discussed. Pt is up to date with mammogram and colonoscopy Orders: Orders Comprehensive [place]. Panel Fast 365 Days E78.5 - Hyperlipidemia, unspecified, I10 - Essential (primary) hypertension Complete Blood Count Auto Diff 365 Days E78.5 - Hyperlipidemia, unspecified, I10 - Essential (primary) hypertension Lipid Panel 365 Days E78.5 - Hyperlipidemia, unspecified, I10 - Essential (primary) hypertension Vitamin D 25-OH Total 365 Days E78.5 - Hyperlipidemia, unspecified, I10 - Essential (primary) hypertension TSH reflex Free T4 365 Days E78.5 - Hyperlipidemia, unspecified, I10 - Essential (primary) hypertension Medications: New compr.stocking,knee,long,small 10-20 mmHg, 12 ea 1RF I87.2 - Venous insufficiency (chronic) (peripheral) fluticasone propionate 50 mcg/actuation (Flonase Allergy Relief) administer into each nostril 1 spray intranasal DAILY 16 grams 5RF ketoconazole 2% 1 appl topical 2XW 120 mL 1RF Coding Level of Care Code Est Pt Prev Care >65y(34952) Diagnoses Venous insufficiency I87.2 Hypertension I10 Hyperlipidemia E78.5 Annual physical exam Z00.00
[2023-06-02 10:22] VITALS: BP 120/74; PULSE 86; O2SAT 97; BMI 26.3
== END 2023-06-02 11:00 | disposition home or self-care (01) ==
PROVIDERS: Visit Provider Internal Medicine
DX: Z00.00 Encounter for general adult medical examination without abnormal findings (principal); I87.2 Venous insufficiency (chronic) (peripheral); I10 Essential (primary) hypertension; E78.5 Hyperlipidemia, unspecified
CPT/HCPCS: 99397

== ENCOUNTER 2023-06-21 13:26 | Outpatient (AMB) | payer MEDICARE, SELFPAY ==
--- NOTE | 2023-06-21 13:32 | MHC.PC.OV ---
Vital Signs 06/21/23 13:33 Height 5 ft 2 in Weight 143 lb BMI 26.2 BP 110/66 Blood Pressure Location Lt brachial Position Sitting Pulse 85 Pulse Source Pulse Oximeter Pulse Oximetry (%) 99 Oxygen Delivery Method Room Air Intake Visit Reasons: R ear pain on going Intake Note: Pt is here today for a sick visit. Pt c/o R ear pain for last 3 months. Pt states that at night she gets pulsing pain. Allergies naproxen Adverse Reaction (Unknown, Verified 06/21/23 13:36) stomach upset Medication List - Last Reconciled 06/21/23 by Gertrude Mahan MD atorvastatin 10 mg PO DAILY benazepril 10 mg PO DAILY coenzyme Q10 (CoQ-10) 100 mg PO DAILY compr.stocking,knee,long,small 10-20 mmHg, fluticasone propionate 50 mcg/actuation (Flonase Allergy Relief) 1 spray intranasal DAILY ibuprofen 800 mg PO TID ketoconazole 2% 1 appl topical 2XW Tobacco use date assessed: 06/02/23 HPI R ear pain on going HPI Details Pt c/o R temporal region pain and pulsing headache for the last 2 days on and off but worse at night. Patient reports right-sided hearing loss. She denies nausea vomiting, change in vision, weakness or numbness in extremities or change in the balance. [facility] Medical History (Updated 06/21/23 @ 14:05 by Gertrude Mahan MD) Chest pain at rest Hearing loss Annual physical exam History of mammogram Hyperlipidemia Thyroid nodule Vitamin D deficiency Spondylosis of lumbar region without myelopathy or radiculopathy Anxiety Hypertension Surgical History Hx of tonsillectomy History of removal of skin mole History of partial hysterectomy H/O colonoscopy No pertinent past surgical history Family History Father No problems noted. Mother Heart problem Brother Mental health disorder Social History Housing: House Patient Tobacco Use Status: Never used Tobacco e-Cigarette/Vaping Use: Never Used service: No Current occupational status: retired Cognitive needs: No Hearing needs: No Vision needs: Yes Questionnaire Thrive Questionnaire Date Thrive assessed: 11/30/22 KANDY-7 AMB Questionnaire KANDY-7 Date KANDY - 7 assessed: 11/30/22 Source: Developed by DrsAdrian Arauz, Clarissa Jacobson, Mehdi Leggett and colleagues, with an educational alfonso from [employer]. Review of Systems Const All systems reviewed & are unremarkable except as noted in HPI and below Reports no additional complaints Eyes Reports no additional complaints ENT Reports no additional complaints Card Reports no additional complaints Resp Reports no additional complaints GI Reports no additional complaints Reports no additional complaints Physical exam (Primary Care) Vital Signs: Last Vital Signs Pulse 85 06/21/23 13:33 BP 110/66 06/21/23 13:33 Pulse Ox 99 06/21/23 13:33 Oxygen Delivery Method Room Air 06/21/23 13:33 BMI result Body Mass Index 26.2 Tobacco/Smoking Status: Tobacco use Status Tobacco use date assessed 06/02/23 06/21/23 13:36 Patient Tobacco Use Status Never used Tobacco 06/21/23 13:36 e-Cigarette/Vaping Use Never Used 06/21/23 13:36 Thrive Assessment: Date of Thrive Assessment Date Thrive assessed 11/30/22 06/21/23 13:36 Const General: no acute distress HENMT Head: Yes normal to inspection Ears: TM's normal bilaterally, no periauricular adenopathy and Ramirez (lateralize to R side) General nose exam: Normal external nose present Face and sinus: Yes normal facial exam Mouth: oropharynx normal Eyes General: appearance normal, both eyes and all related structures Neck Neck: Yes supple Resp Effort & Inspection: normal respiratory effort Auscultation: clear to auscultation bilaterally Cardio Rhythm: regular rhythm Heart sounds: S1 normal heart sound present and S2 normal heart sound present Neuro Cranial nerves: Yes CN's II-XII intact bilaterally Cognition (Neuro): normal cognition Gait exam (Neuro): Normal gait present Motor exam (neuro): 5/5 motor strength present throughout Romberg Test: Negative Assessment and Plan Assessment & Plan (1) Hearing loss, right: Code(s): H91.91 - Unspecified hearing loss, right ear Plan: Check hearing test (2) New onset headache: Code(s): R51.9 - Headache, unspecified Plan: Obtain CT of the brain to rule CVA or bleed. Check sedimentation rate to rule out temporal arteritis (3) Hypertension: Code(s): I10 - Essential (primary) hypertension Orders: Orders CT head/brain wo IV con Today H91.91 - Unspecified hearing loss, right ear, R51.9 - Headache, unspecified Erythrocyte Sedimentation Rate Today R51.9 - Headache, unspecified Referrals Speech and Hearing Referral H91.91 - Unspecified hearing loss, right ear Coding Level of Care Code Est Pt Level 3 (84794) Diagnoses Hearing loss, right H91.91 New onset headache R51.9 Hypertension I10
[2023-06-21 13:33] VITALS: BP 110/66; PULSE 85; O2SAT 99; BMI 26.2
== END 2023-06-21 14:16 | disposition home or self-care (01) ==
PROVIDERS: PCP Internal Medicine; Visit Provider Internal Medicine
DX: H91.91 Unspecified hearing loss, right ear (principal); R51.9 Headache, unspecified; I10 Essential (primary) hypertension
CPT/HCPCS: 99213

== ENCOUNTER 2023-06-21 14:34 | Outpatient (REF) | payer MEDICARE, SELFPAY ==
[2023-06-21 17:12] LABS: Erythrocyte Sedimentation Rate 8 MM/HR (0-20)
== END 2023-06-21 14:35 | disposition home or self-care (01) ==
LOC: HO.HMGCLDS 14:34
PROVIDERS: PCP Internal Medicine; Visit Provider Internal Medicine
DX: R51.9 Headache, unspecified (principal)
CPT/HCPCS: 36415; 85652

== ENCOUNTER 2023-06-22 11:23 | Outpatient (REF) | payer MEDICARE, SELFPAY ==
--- NOTE | ~2023-06-22 | CT_ITS ---
EXAMINATION: CT HEAD WITHOUT CONTRAST CLINICAL INFORMATION: Headache COMPARISON: None available. TECHNIQUE: Contiguous axial imaging was performed from the skull base to vertex without intravenous administration of contrast. This CT examination was performed using dose optimization techniques as appropriate, variously including the following: *Automated exposure control *Adjustment of mA and/or kV according to patient size (this includes techniques or standardized protocols for targeted exams where dose is matched to indication/reason for exam; i.e. 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 There is no evidence of acute intracranial hemorrhage or territorial infarction. Chronic white matter small vessel ischemic changes. No abnormal mass effect or midline shift is seen. Rudd to white matter differentiation is well preserved. No extra-axial fluid collections are identified. The ventricles are normal in size. There is no abnormal attenuation within the brain parenchyma. The osseous structures and soft tissues are normal. The mastoid air cells and visualized portions of the paranasal sinuses are well aerated. CT/CT head/brain wo IV con IMPRESSION: 1. No acute intracranial pathology. 2. 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 3. Chronic white matter small vessel ischemic changes.
== END 2023-06-22 11:24 | disposition home or self-care (01) ==
LOC: HO.CT 11:23
PROVIDERS: PCP Internal Medicine; Visit Provider Internal Medicine
DX: R51.9 Headache, unspecified (principal); H91.91 Unspecified hearing loss, right ear
CPT/HCPCS: 70450

== ENCOUNTER 2023-08-08 13:13 | Outpatient (AMB) | payer MEDICARE, SELFPAY ==
[2023-08-08 13:28] VITALS: BP 118/66; PULSE 83; O2SAT 95; BMI 26.9
--- NOTE | 2023-08-08 13:28 | A.OFFPC_ITS ---
Vital Signs 08/08/23 13:28 Height 5 ft 2 in Weight 147 lb BMI 26.9 BP 118/66 Blood Pressure Location Lt brachial Position Sitting Pulse 83 Pulse Source Pulse Oximeter Pulse Oximetry (%) 95 Oxygen Delivery Method Room Air Intake Visit Reasons: sores in mouth Intake Note: Pt is here today for a sick visit. Pt c/o sores on her gums and mouth. Pt states that when she is eating it hurts. Allergies naproxen Adverse Reaction (Unknown, Verified 08/08/23 13:32) stomach upset Tobacco use date assessed: 06/02/23 HPI sores in mouth HPI Details Patient presents complaining of white spots on gingivae on and off for the last week. Patient denies tooth aches, sore throat fever chills cough. Hypertension hyperlipidemia are controlled on current medications [facility] Medical History (Updated 06/21/23 @ 14:05 by Gertrude Mahan MD) Chest pain at rest Hearing loss Annual physical exam History of mammogram Hyperlipidemia Thyroid nodule Vitamin D deficiency Spondylosis of lumbar region without myelopathy or radiculopathy Anxiety Hypertension Surgical History Hx of tonsillectomy History of removal of skin mole History of partial hysterectomy H/O colonoscopy No pertinent past surgical history Family History Father No problems noted. Mother Heart problem Brother Mental health disorder Social History Housing: House Patient Tobacco Use Status: Never used Tobacco e-Cigarette/Vaping Use: Never Used service: No Current occupational status: retired Cognitive needs: No Hearing needs: No Vision needs: Yes Questionnaire Thrive Questionnaire Date Thrive assessed: 11/30/22 KANDY-7 AMB Questionnaire KANDY-7 Date KANDY - 7 assessed: 11/30/22 Source: Developed by Drs. Jorge Alberto Arauz, Clarissa Jacobson, Mehdi Leggett and colleagues, with an educational alfonso from [employer].. Review of Systems Const All systems reviewed & are unremarkable except as noted in HPI and below Reports no additional complaints Eyes Reports no additional complaints ENT Reports no additional complaints Card Reports no additional complaints Resp Reports no additional complaints GI Reports no additional complaints Reports no additional complaints Physical exam (Primary Care) Vital Signs: Last Vital Signs Pulse 83 08/08/23 13:28 BP 118/66 08/08/23 13:28 Pulse Ox 95 08/08/23 13:28 Oxygen Delivery Method Room Air 08/08/23 13:28 BMI result Body Mass Index 26.9 Tobacco/Smoking Status: Tobacco use Status Tobacco use date assessed 06/02/23 08/08/23 13:33 Patient Tobacco Use Status Never used Tobacco 08/08/23 13:33 e-Cigarette/Vaping Use Never Used 08/08/23 13:33 Thrive Assessment: Date of Thrive Assessment Date Thrive assessed 11/30/22 08/08/23 13:33 Const General: no acute distress HENMT Face and sinus: Yes normal facial exam Mouth: Normal oral and palatal mucosa present and oropharynx normal Teeth and gingiva: dentition normal and gingiva normal Throat: Yes posterior oropharynx normal Eyes General: appearance normal, both eyes and all related structures Neck Neck: Yes supple Resp Effort & Inspection: normal respiratory effort Auscultation: clear to auscultation bilaterally Cardio Rhythm: regular rhythm Heart sounds: S1 normal heart sound present and S2 normal heart sound present Assessment and Plan Assessment & Plan (1) Hypertension: Code(s): I10 - Essential (primary) hypertension Plan: Continue benazepril (2) Hyperlipidemia: Code(s): E78.5 - Hyperlipidemia, unspecified Plan: Continue statin Coding Level of Care Code Est Pt Level 3 (31206) Diagnoses Hypertension I10 Hyperlipidemia E78.5
== END 2023-08-08 13:56 | disposition home or self-care (01) ==
PROVIDERS: PCP Internal Medicine; Visit Provider Internal Medicine
DX: I10 Essential (primary) hypertension (principal); E78.5 Hyperlipidemia, unspecified
CPT/HCPCS: 99213

== ENCOUNTER 2023-10-20 08:25 | Outpatient (REF) | payer MEDICARE, SELFPAY | END 2023-10-20 08:26 | disposition home or self-care (01) | LOC: HO.SH 08:25 | PROVIDERS: PCP Internal Medicine; Visit Provider Internal Medicine | DX: H90.3 Sensorineural hearing loss, bilateral (principal); H92.01 Otalgia, right ear | CPT/HCPCS: 92557; 92567 ==

== ENCOUNTER 2023-12-29 08:10 | Outpatient (AMB) | payer MEDICARE, SELFPAY ==
--- NOTE | 2023-12-29 08:35 | A.OFFPC_ITS ---
Vital Signs 12/29/23 08:36 Height 5 ft 2 in Weight 148 lb BMI 27.1 BP 124/80 Blood Pressure Location Lt brachial Position Sitting Pulse 87 Pulse Source Pulse Oximeter Pulse Oximetry (%) 97 Oxygen Delivery Method Room Air Intake Visit Reasons: Abdominal pain on and off Allergies naproxen Adverse Reaction (Unknown, Verified 12/29/23 08:37) stomach upset Medication List - Last Reconciled 12/29/23 by Gertrude Mahan MD atorvastatin 10 mg PO DAILY benazepril 10 mg PO DAILY coenzyme Q10 (CoQ-10) 100 mg PO DAILY compr.stocking,knee,long,small 10-20 mmHg, fluticasone propionate 50 mcg/actuation (Flonase Allergy Relief) 1 spray intranasal DAILY ibuprofen 800 mg PO TID ketoconazole 2% 1 appl topical 2XW Tobacco use date assessed: 12/29/23 Fall risk assessment: No Falls in past year Last assessed Fall Risk: 12/29/23 Dental Screening Dental Screen Date: 12/29/23 Did you have a dental visit in the last 12 months?: Yes Did you have a dental problem in the last 6 months where you did not have access to dental care?: No Was dental information given to patient?: Patient has dentist HPI Abdominal pain on and off HPI Details Patient had an episode of epigastric and rapid quadrant abdominal pain 2 weeks ago started after breakfast and lasted all day. She denies any recurrence of the pain. Patient denied nausea vomiting change in bowel habits fever chills hematochezia melena PFSH Medical History Chest pain at rest Hearing loss Annual physical exam History of mammogram Hyperlipidemia Thyroid nodule Vitamin D deficiency Spondylosis of lumbar region without myelopathy or radiculopathy Anxiety Hypertension Surgical History Hx of tonsillectomy History of removal of skin mole History of partial hysterectomy H/O colonoscopy No pertinent past surgical history Family History Father No problems noted. Mother Heart problem Brother Mental health disorder Social History Housing: House Patient Tobacco Use Status: Never used Tobacco e-Cigarette/Vaping Use: Never Used service: No Current occupational status: retired Cognitive needs: No Hearing needs: No Vision needs: Yes Questionnaire Thrive Questionnaire Date Thrive assessed: 11/30/22 KANDY-7 AMB Questionnaire KANDY-7 Date KANDY - 7 assessed: 11/30/22 Source: Developed by Drs. Jorge Alberto Arauz, Clarissa Jacobson, Mehdi Leggett and colleagues, with an educational alfonso from [employer]. Review of Systems Const All systems reviewed & are unremarkable except as noted in HPI and below ENT Reports no additional complaints Card Reports no additional complaints Resp Reports no additional complaints GI Reports no additional complaints Reports no additional complaints Physical exam (Primary Care) Vital Signs: Last Vital Signs Pulse 87 12/29/23 08:36 BP 124/80 12/29/23 08:36 Pulse Ox 97 12/29/23 08:36 Oxygen Delivery Method Room Air 12/29/23 08:36 BMI result Body Mass Index 27.1 Tobacco/Smoking Status: Tobacco use Status Tobacco use date assessed 12/29/23 12/29/23 08:38 Patient Tobacco Use Status Never used Tobacco 12/29/23 08:38 e-Cigarette/Vaping Use Never Used 12/29/23 08:36 Thrive Assessment: Date of Thrive Assessment Date Thrive assessed 11/30/22 12/29/23 08:36 Const General: no acute distress HENMT Head: Yes normal to inspection Face and sinus: Yes normal facial exam Throat: Yes posterior oropharynx normal Neck Neck: Yes supple Resp Effort & Inspection: normal respiratory effort Auscultation: clear to auscultation bilaterally Cardio Rhythm: regular rhythm Heart sounds: S1 normal heart sound present and S2 normal heart sound present GI Inspection: Yes normal to inspection Palpation (GI): Soft to palpation Percussion: Yes normal to percussion Assessment and Plan Assessment & Plan (1) RUQ abdominal pain: Code(s): R10.11 - Right upper quadrant pain Plan: Obtain ultrasound to rule out gallstones, patient was advised to monitor her symptoms in relation to foot intake and call for any recurrent pain (2) Hypertension: Code(s): I10 - Essential (primary) hypertension Plan: Continue medication (3) Hyperlipidemia: Code(s): E78.5 - Hyperlipidemia, unspecified Plan: Continue statin Orders: Orders US abdomen limited Today R10.11 - Right upper quadrant pain Coding Level of Care Code Est Pt Level 3 (40916) Diagnoses RUQ abdominal pain R10.11 Hypertension I10 Hyperlipidemia E78.5
[2023-12-29 08:36] VITALS: BP 124/80; PULSE 87; O2SAT 97; BMI 27.1
== END 2023-12-29 10:37 | disposition home or self-care (01) ==
PROVIDERS: PCP Internal Medicine; Visit Provider Internal Medicine
DX: R10.11 Right upper quadrant pain (principal); I10 Essential (primary) hypertension; E78.5 Hyperlipidemia, unspecified
CPT/HCPCS: 99213

== ENCOUNTER 2024-01-12 08:30 | Outpatient (REF) | payer MEDICARE, SELFPAY ==
--- NOTE | ~2024-01-12 | US_ITS ---
EXAMINATION: US ABDOMEN LIMITED CLINICAL INFORMATION: Right upper quadrant pain. Rule out gallstones. COMPARISON: Ultrasound abdomen complete 06/04/2019. TECHNIQUE: Real-time imaging of the right upper quadrant abdominal viscera. Limited visualization due to bowel gas. FINDINGS: PANCREAS: Limited visualization of pancreatic tail and head. Imaged portion of pancreatic body is unremarkable. LIVER: Increased hepatic parenchymal heterogeneity and echogenicity could be associated with hepatocellular disease/hepatic steatosis and substantially limits visualization. Correlation with liver function tests and clinical exam recommended to determine further management. GALLBLADDER: No gallstones. No gallbladder wall thickening. COMMON BILE DUCT: Measures 0.6 cm in diameter, previously 0.67 cm in diameter on 06/04/2019. RIGHT KIDNEY: No hydronephrosis. No renal calculi. Limited visualization. The kidney measures 10.4 cm in maximum dimension. FREE FLUID: None. US/US abdomen limited IMPRESSION: Increased hepatic parenchymal heterogeneity and echogenicity could be associated with hepatocellular disease/hepatic steatosis and substantially limits visualization. Correlation with liver function tests and clinical exam recommended to determine further management.
== END 2024-01-12 08:31 | disposition home or self-care (01) ==
LOC: HO.HMGCX 08:30
PROVIDERS: PCP Internal Medicine; Visit Provider Internal Medicine
DX: R10.11 Right upper quadrant pain (principal)
CPT/HCPCS: 76705

== ENCOUNTER 2024-06-11 08:39 | Outpatient (REF) | payer MEDICARE, SELFPAY ==
[2024-06-11 10:12] LABS: MANUAL DIFF FLAG NO
[2024-06-11 10:27] LABS: Basophils Absolute Auto 0.1 X10*3/uL (0.0-0.2); Basophils Percent Auto 0.9 % (0-2); Eosinophils Absolute Auto 0.2 X10*3/uL (0.0-0.4); Hematocrit 42.4 % (37.0-47.0); Hemoglobin 14.2 g/dl (12.0-16.0); Imm Gran Abs Auto 0.04 X10*3/uL (0.00-0.03); Imm Gran Pct Auto 0.7 % (0.0-0.4); Lymphocytes Absolute Auto 2.1 X10*3/uL (1.2-4.9); Lymphocytes Percent Auto 36.4 % (20-40); Mean Corpuscular HGB Conc 33.5 g/dl (31.0-35.0); Mean Corpuscular Hemoglobin 31.8 pg (27.0-33.0); Mean Corpuscular Volume 94.9 fL (80.0-98.0); Mean Platelet Volume 11.1 fL (9.4-12.3); Monocytes Absolute Auto 0.3 X10*3/uL (0.1-1.2); Monocytes Percent Auto 5.8 % (2-11); Neutrophils Percent Auto 53.2 % (45-73); Platelet Count 203 X10*3/uL (160-400); Red Blood Count 4.47 X10*6/uL (4.20-5.50); Red Cell Distribution Width 12.4 % (11.0-16.0); White Blood Count 5.7 X10*3/uL (4.8-10.8)
[2024-06-11 10:42] LABS: Albumin Level 4.2 g/dL (3.5-5.0); Alkaline Phosphatase 63 U/L (39-117); Anion Gap 12 (12-20); Bilirubin Total 0.7 mg/dL (0.0-1.0); Blood Urea Nitrogen 13 mg/dL (9-16); Calcium 9.5 mg/dL (8.4-10.2); Carbon Dioxide 31 mmol/L (22-29); Chloride 106 mmol/L (96-108); Cholesterol 176 mg/dL (<200); Estimated Glomerular Filt Rate > 60; Glucose Fasting 97 mg/dL (60-99); HDL Cholesterol 42 mg/dL (>40); LDL Cholesterol Calculated 117 mg/dL (<100); Potassium 4.8 mmol/L (3.3-5.1); Sodium 144 mmol/L (135-145); Total Protein 6.8 g/dL (6.5-8.0); Triglycerides 87 mg/dL (<150)
[2024-06-11 11:07] LABS: TSH reflex Free T4 2.13 uIU/mL (0.32-4.0); Vitamin D 25-OH Total 46.7 ng/mL (>30)
[2024-06-11 12:42] LABS: Alanine Aminotransferase 27 U/L (0-31); Aspartate Amino Transferase 26 U/L (5-31)
== END 2024-06-11 08:40 | disposition home or self-care (01) ==
LOC: HO.HMGCLDS 08:39
PROVIDERS: PCP Internal Medicine; Visit Provider Internal Medicine
DX: I10 Essential (primary) hypertension (principal); E78.5 Hyperlipidemia, unspecified
CPT/HCPCS: 36415; 80053; 80061; 82306; 84443; 85025

== ENCOUNTER 2024-07-11 13:24 | Outpatient (AMB) | payer MEDICARE, SELFPAY ==
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
[2024-07-11 13:28] VITALS: BP 114/70; PULSE 84; O2SAT 96; BMI 25.8
== END 2024-07-11 14:02 | disposition home or self-care (01) ==
PROVIDERS: PCP Internal Medicine; Visit Provider Internal Medicine
DX: I10 Essential (primary) hypertension (principal); E55.9 Vitamin D deficiency, unspecified; E78.5 Hyperlipidemia, unspecified; Z00.00 Encounter for general adult medical examination without abnormal findings; D12.6 Benign neoplasm of colon, unspecified

== ENCOUNTER → 2024-07-11 13:24 | Outpatient (BNVA) | payer MEDICARE, SELFPAY | PROVIDERS: PCP Internal Medicine; Visit Provider Internal Medicine | DX: Z00.00 Encounter for general adult medical examination without abnormal findings (principal); I10 Essential (primary) hypertension; E55.9 Vitamin D deficiency, unspecified; E78.5 Hyperlipidemia, unspecified; D21.6 Benign neoplasm of connective and other soft tissue of trunk, unspecified | CPT/HCPCS: 96127; 99397 ==

== ENCOUNTER 2025-03-21 11:19 | Emergency (ER) | payer MEDICARE, SELFPAY ==
--- NOTE | ~2025-03-21 | CT_ITS ---
EXAMINATION: CT HEAD WITHOUT CONTRAST CLINICAL INFORMATION: Dizziness COMPARISON: 06/22/2023. TECHNIQUE: Contiguous axial imaging was performed from the skull base to vertex without intravenous administration of contrast. This CT examination was performed using dose optimization techniques as appropriate, variously including the following: *Automated exposure control *Adjustment of mA and/or kV according to patient size (this includes techniques or standardized protocols for targeted exams where dose is matched to indication/reason for exam; i.e. extremities or head) *Use of iterative reconstruction technique FINDINGS: There is no evidence of intracranial hemorrhage or extra-axial fluid collection. There is no mass effect, or edema. No CT evidence of acute territorial infarct. Ventricles, sulci, and cisterns are normal in size and configuration for patient age. No hydrocephalus. No midline shift. Negative hyperdense MCA sign. Negative insular ribbon sign. 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 Patchy periventricular and deep white matter hypoattenuation is consistent with mild small vessel ischemic changes. Normal pituitary. Globes and orbital contents image normally. No extracranial soft tissue abnormalities. The paranasal sinuses, mastoid air cells, and tympanic cavities are normally aerated. No suspicious bony abnormalities. There are no acute fractures evident. CT/CT head/brain wo IV con IMPRESSION: 1. No acute intracranial abnormality. 2. 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 This is unchanged from 06/22/2023. Electronically signed by: Jozef Mccloud MD 03/21/2025 12:34 PM EDT
[2025-03-21 11:25] VITALS: BP 170/79; PULSE 88; RESP 18; TEMP 36.3; O2SAT 97; BMI 24.8
--- NOTE | 2025-03-21 11:26 | ED_ITS ---
HPI - Dizziness General Chief Complaint: Dizziness Stated Complaint: Dizziness, vomiting Time Seen by Provider: 03/21/25 13:39 Source: patient Mode of arrival: ambulatory Limitations: no limitations History of Present Illness ED Provider: Dr. Danny Santos HPI Narrative: 70-year-old female with a history of hypertension, hyperlipidemia who presents emergency department for evaluation of sudden onset of room spinning dizziness. She states that when she woke up this morning out of bed the room was spinning. She states she had nausea and vomited 3 times. She also had 3 episodes of diarrhea. She states that when she lied still the symptoms resolved. These symptoms are worse with movement. She denied difficulty thinking, talking, numbness, weakness. She denied change in her vision. She denied fever, chills, sore throat, cough, chest pain, shortness of breath, dyspnea on exertion. Related Data Home Medications ?Medication ?Instructions ?Recorded ?Confirmed coenzyme Q10 100 mg capsule 100 mg PO DAILY 05/26/21 1 09/10/23 (CoQ-10) Previous Rx's ?Medication ?Instructions ?Recorded compr.stocking,knee,long,small #12 ea 06/02/23 ketoconazole 2 % shampoo 1 appl topical 2XW #120 mL 1 atorvastatin 10 mg tablet 10 mg PO DAILY #90 tabs 06/23 benazepril 10 mg tablet 10 mg PO DAILY #90 tabs 06/23 erythromycin 5 mg/gram (0.5 %) eye 1 appl ophthalmic ( eye) DAILY #3.5 07/11/24 ointment grams fluticasone propionate 50 1 spray intranasal DAILY #16 grams 07/11/24 mcg/actuation nasal spray,suspension (Flonase Allergy Relief) ibuprofen 800 mg tablet 800 mg PO TID #90 tabs 07/11 meclizine 25 mg tablet (Dramamine 25 mg PO TID PRN diz ziness #20 tabs 03/21/25 Less Drowsy) ondansetron 4 mg disintegrating 4 mg PO Q6-8H PRN naus ea and 03/21/25 tablet vomiting #14 tabs Allergies Allergy/AdvReac Type Severity Reaction Status Date / Time naproxen AdvReac Unknown stomach Verified 03/21/25 11:27 upset Review of Systems 2 Review of Systems: Yes all other systems are reviewed and are negative [facility] Past Medical History [facility] Narrative: Social history: She is and her is here in the emergency department with her. She denied tobacco, alcohol and drug use. Medical History Chest pain at rest Hearing loss Annual physical exam History of mammogram Hyperlipidemia Thyroid nodule Vitamin D deficiency Spondylosis of lumbar region without myelopathy or radiculopathy Anxiety Hypertension Surgical History Hx of tonsillectomy History of removal of skin mole History of partial hysterectomy H/O colonoscopy No pertinent past surgical history Family History Family History Father No problems noted. Mother Heart problem Brother Mental health disorder Social History Social History Housing: House Patient Tobacco Use Status: Never used Tobacco e-Cigarette/Vaping Use: Never Used service: No Current occupational status: retired Cognitive needs: No Hearing needs: No Vision needs: Yes Physical Exam 2 Vital Signs: Vital Signs: Last Vital Signs Temp 97.3 F 03/21/25 13:35 Pulse 87 03/21/25 13:35 Resp 18 03/21/25 13:35 BP 139/8 L 03/21/25 13:35 Pulse Ox 95 03/21/25 13:35 O2 Del Method Room Air 03/21/25 13:35 BMI result Body Mass Index 24.8 Vital signs were normal Exam: General: Awake, alert in no distress Head: Normocephalic, atraumatic EENT: PERRL, lateral nystagmus, Lids normal, sclera normal, conjunctiva normal, nose normal , ears normal, throat without erythema or exudates Neck: Supple, no adenopathy Lung: breath sounds symmetric, no wheezing, rales or rhonchi Chest: symmetric movement, nontender Heart: regular rate and rhythm, normal S1, S2 no murmurs or rubs Abdomen: soft, non-tender, nondistended, normal bowel sounds Back: no vertebral tenderness, no CVAT Extremities: no deformities, moves all extremities symmetrically Neuro: General: ?Awake, alert, oriented, normal speech Cranial nerves: ?Cranial nerves ?intact Strength: ?Moves all extremities symmetrically, strength 5/5 Cerebellar: ?Good [id number]-tc-zyxb-to-finger, good rapid finger movement, normal heel to crabtree, gait was normal Psych: Pleasant, cooperative Course Course Course Narrative: NINI Goldsmith 03/21/25 1126 This is a Rapid Medical Examination (RME) performed by Sabine Hernandez PA-C in triage. Full HPI, ROS, assessment and treatment plan per primary provider in the Main ED. Hx: 70 yo F here for eval of multiple concerns. reports waking up around 0700 this morning feeling dizzy, described as room spinning sensation which lasted around 2 hours before resolving. also reports chills, muscle pain, right sided headache, vomiting, and diarrhea all beginning today. PE/vitals: well appearing, AOX3, exam non focal, NIH 0, cerebellum intact, ambulating w/ steady gait. Plan: labs, viral swabs, ekg, CT head Medical Decision Making Medical Decision Making MDM Narrative: 70-year-old female with a history of hypertension, hyperlipidemia who presents emergency department for evaluation of sudden onset of room spinning dizziness. She states that when she woke up this morning out of bed the room was spinning. She states she had nausea and vomited 3 times. She also had 3 episodes of diarrhea. She states that when she lied still the symptoms resolved. These symptoms are worse with movement. She denied difficulty thinking, talking, numbness, weakness. She denied change in her vision. She denied fever, chills, sore throat, cough, chest pain, shortness of breath, dyspnea on exertion. Vital signs revealed an elevated blood pressure of 170/79 otherwise unremarkable. Exam did reveal lateral nystagmus. Cerebellar exam was otherwise unremarkable and the patient's gait was normal. Differential diagnosis: ?Includes but is not limited to cerebellar stroke, benign positional vertigo, anemia, electrolyte abnormalities Course: 14:08 My independent interpretation patient's laboratory evaluation is as follows: CBC was normal. Glucose elevated 125. LFTs were normal. Troponin was below detectable limits. COVID-19, influenza RSV tests were negative. Patient's 12 EKG was unremarkable. Patient's presentation, physical examination and workup is consistent with benign positional vertigo and I did discuss this with the patient. Patient was given meclizine 25 mg orally and Zofran 4 mg orally. Patient was given printed and verbal instructions and discharged home. Admission/Observation Consideration of admission/observation: Escalation of care including admission/observation considered (Yes) Lab Data MDM Lab Attestation statement: I reviewed the patient's lab results. 03/21/25 12:09 03/21/25 12:09 Labs: Lab Results 03/21/25 03/21/25 Range/Units 12:08 12:09 WBC 9.4 (4.8-10.8) X10*3/uL RBC 4.75 (4.20-5.50) X10*6/uL Hgb 14.9 (12.0-16.0) g/dl Hct 43.3 (37.0-47.0) % MCV 91.2 (80.0-98.0) fL MCH 31.4 (27.0-33.0) pg MCHC 34.4 (31.0-35.0) g/dl RDW 12.5 (11.0-16.0) % Plt Count 201 (160-400) X10*3/uL MPV 10.5 (9.4-12.3) fL Immature Gran % (Auto) 0.4 (0.0-0.4) % Neut % (Auto) 86.2 H (45-73) % Lymph % (Auto) 11.0 L (20-40) % Webb % (Auto) 2.0 (2-11) % Eos % (Auto) 0.1 (0-4) % Baso % (Auto) 0.3 (0-2) % Lymph # (Auto) 1.0 L (1.2-4.9) X10*3/uL Webb # (Auto) 0.2 (0.1-1.2) X10*3/uL Eos # (Auto) 0.0 (0.0-0.4) X10*3/uL Baso # (Auto) 0.0 (0.0-0.2) X10*3/uL Abs Immat Gran (auto) 0.04 H (0.00-0.03) X10*3/uL Absolute Neuts (auto) 8.1 (2.0-8.3) x10*3/uL Absolute Nucleated RBC 0.000 (0.0-0.012) X10*3/uL Nucleated RBC % (auto) 0.0 (0.0-0.2) /100WBC Sodium 140 (135-145) mmol/L Potassium 4.2 (3.3-5.1) mmol/L Chloride 103 (96-108) mmol/L Carbon Dioxide 29 (22-29) mmol/L Anion Gap 12 (12-20) BUN 13 (9-16) mg/dL Creatinine 0.61 (0.5-1.4) mg/dL Estim Creat Clear Calc 71.9 Estimated GFR > 60 Random Glucose 125 H (60-115) mg/dL Calcium 9.2 (8.4-10.2) mg/dL Magnesium 2.0 (1.6-2.6) mg/dL Total Bilirubin 0.5 (0.0-1.0) mg/dL AST 26 (5-31) U/L ALT 29 (0-31) U/L Alkaline Phosphatase 69 (39-117) U/L Troponin I High Sens < 2.7 (<3.5-17.0) ng/L Total Protein 7.6 (6.5-8.0) g/dL Albumin 4.9 (3.5-5.0) g/dL Urine Color Yellow Urine Appearance Clear Urine pH 7.0 (5.0-9.0) Ur Specific Clark 1.015 (1.005-1.025) Urine Protein Negative (Neg-Trace) mg/dL Urine Glucose (UA) Negative (Negative) mg/dL Urine Ketones Negative (Negative) mg/dL Urine Blood Negative (Negative) Urine Nitrite Negative (Negative) Ur Leukocyte Esterase Negative (Negative) Influenza Type A (PCR) NEGATIVE (Negative) Influenza Type B (PCR) NEGATIVE (Negative) RSV RNA Qual (PCR) NEGATIVE (Negative) SARS-CoV-2 RNA (RT-PCR) NEGATIVE (Negative) Independent Interpretation I performed an independent interpretation of an: EKG Interpretation: My independent interpretation of the patient's 03/21/2025 at 11:56 hours is as follows: Normal sinus rhythm with a rate of 76, normal DE interval, QRS duration QTC interval, no ST segment elevation, no ST segment depression, no PACs, no PVCs, no T-wave abnormalities Radiology Impression Discussion of test interpretation with radiology: I have reviewed the radiologist's reading. Radiologist Impression: CT head/brain wo IV con IMPRESSION: 1. No acute intracranial abnormality. 2. 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 This is unchanged from 06/22/2023. Electronically signed by: Jozef Mccloud MD 03/21/2025 12:34 PM EDT Independent Historian Clinical information obtained from an independent historian. History obtained from or confirmed by: Spouse Prescription Management I considered prescription management with: Other (Antiemetic: Zofran, anti vertigo: Meclizine) Chronic Conditions Patient?s care impacted by: Hypertension and Other (Hyperlipidemia) Discharge Plan Discharge Clinical Impression: Benign paroxysmal positional vertigo Patient Disposition: Home, Self-Care Instructions: Benign Paroxysmal Positional Vertigo (ED) Additional Instructions: Your blood work was normal. Your EKG was normal. Your COVID-19, influenza and RSV tests were negative. Your urine test was negative. The CT scan of your brain without IV contrast was normal. Your symptoms, presentation and examination are consistent with benign positional vertigo which is malfunction of the balance mechanism in the inner part of your urine. This type of vertigo comes on suddenly, goes away when you stays still. Symptoms are often worse with the 1st 2-3 days but can last up to 2 weeks. Take meclizine 25 mg pills, 1 pill 3 times a day for the next 3 days for dizziness then as needed for dizziness. ?This medication will make you sleepy. ?Do not drive or work while taking this medication. Take Zofran ODT 4 mg pills, 1 pill dissolved in your mouth every 8 hours as needed for nausea and vomiting. Follow-up with your doctor in 2 days. Please return to the emergency department if your symptoms get worse or if you develop any symptoms that are concerning to you. Prescriptions: New meclizine [Dramamine Less Drowsy] 25 mg tablet 25 mg PO TID PRN (Reason: dizziness) Qty: 20 0RF ondansetron 4 mg tablet,disintegrating 4 mg PO Q6-8H PRN (Reason: nausea and vomiting) Qty: 14 0RF No Action coenzyme Q10 [CoQ-10] 100 mg capsule 100 mg PO DAILY (DME) compr.stocking,knee,long,small Misc See Rx Instructions .Route Qty: 12 1RF Rx Instructions: 10-20 mmHg, ketoconazole 2 % shampoo 1 appl topical 2XW Qty: 120 1RF atorvastatin 10 mg tablet 10 mg PO DAILY Qty: 90 3RF benazepril 10 mg tablet 10 mg PO DAILY Qty: 90 3RF ibuprofen 800 mg tablet 800 mg PO TID Qty: 90 0RF erythromycin 5 mg/gram (0.5 %) ointment 1 appl ophthalmic (eye) DAILY Qty: 3.5 1RF fluticasone propionate [Flonase Allergy Relief] 50 mcg/actuation spray,suspension 1 spray intranasal DAILY Qty: 16 5RF Rx Instructions: administer into each nostril Print Language: Yoruba
--- NOTE | 2025-03-21 11:30 | ECG_ITS ---
Test Reason : dizziness Blood Pressure : */* mmHG Vent. Rate : 76 BPM Atrial Rate : 76 BPM P-R Int : 174 ms QRS Dur : 82 ms QT Int : 420 ms P-R-T Axes : 4 3 51 degrees QTcB Int : 472 ms Normal sinus rhythm Low voltage QRS Borderline ECG No previous ECGs available Referred By: Lorena Hernandez Electronically Signed By: CARLOS DILLON MD
[2025-03-21 12:14] LABS: MANUAL DIFF FLAG NO
[2025-03-21 12:16] LABS: Hematocrit 43.3 % (37.0-47.0); Hemoglobin 14.9 g/dl (12.0-16.0); Imm Gran Abs Auto 0.04 X10*3/uL (0.00-0.03); Imm Gran Pct Auto 0.4 % (0.0-0.4); Lymphocytes Absolute Auto 1.0 X10*3/uL (1.2-4.9); Mean Corpuscular HGB Conc 34.4 g/dl (31.0-35.0); Mean Corpuscular Hemoglobin 31.4 pg (27.0-33.0); Mean Corpuscular Volume 91.2 fL (80.0-98.0); NRBC Abs Auto 0.000 X10*3/uL (0.0-0.012); NRBC Pct Auto 0.0 /100WBC (0.0-0.2); Platelet Count 201 X10*3/uL (160-400); Red Blood Count 4.75 X10*6/uL (4.20-5.50); White Blood Count 9.4 X10*3/uL (4.8-10.8)
[2025-03-21 12:17] LABS: Appearance Urine Clear; Glucose Urine UA Negative (Negative); PH 7.0 (5.0-9.0); Specific Gravity - Urine 1.015 (1.005-1.025)
[2025-03-21 12:31] LABS: Alanine Aminotransferase 29 U/L (0-31); Albumin Level 4.9 g/dL (3.5-5.0); Alkaline Phosphatase 69 U/L (39-117); Anion Gap 12 (12-20); Aspartate Amino Transferase 26 U/L (5-31); Blood Urea Nitrogen 13 mg/dL (9-16); Calcium 9.2 mg/dL (8.4-10.2); Carbon Dioxide 29 mmol/L (22-29); Chloride 103 mmol/L (96-108); Creatinine Clr Calc Pharmacy 71.9; Estimated Glomerular Filt Rate > 60; Magnesium 2.0 mg/dL (1.6-2.6); Potassium 4.2 mmol/L (3.3-5.1); Sodium 140 mmol/L (135-145); Total Protein 7.6 g/dL (6.5-8.0)
[2025-03-21 12:39] LABS: Troponin-I High Sensitivity < 2.7 ng/L (<3.5-17.0)
[2025-03-21 12:52] LABS: Resp Syncy Virus RNA Qual PCR NEGATIVE (Negative); SARS COV2 PCR INHOUSE NEGATIVE (Negative)
[2025-03-21 13:35] VITALS: BP 139/8; PULSE 87; RESP 18; TEMP 36.3; O2SAT 95
--- OUTSIDE RECORDS SUMMARY | 2025-03-21 13:57 | XMS_ITS | Encounter Summary ---
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 Name Role Phone Gertrude Mahan MD Primary Care Provider [phone] Encounter Details Date Type Department Care Team (Latest Contact Info) Description 02/13/2025 Lab Requisition [facility] - Main Lab [address] [facility] [address] [place] [address] Praveen Gloria MD [address] [address] Encounter for gynecological examination (general) (routine) without abnormal findings Social History Tobacco Use Types Packs/Day Years Used Date Smoking Tobacco: Never Assessed Comments Unknown Sex and Gender Information Value Date Recorded Sex Assigned at Not on file Legal Sex Female 6:14 PM EST Gender Identity Not on file Sexual Orientation Not on file documented as of this encounter Plan of Treatment Not on file documented as of this encounter Procedures Procedure Name Priority Date/Time Associated Diagnosis Comments PAP SMEAR Routine 02/12/2025 12:00 PM EDT Encounter for gynecological examination (general) (routine) without abnormal findings documented in this encounter Results * Pap smear (02/12/2025 12:00 PM EDT) Interpretation Negative for intraepithelial lesion or malignancy 02/18/2025 8:33 AM EDT [facility] General Categorization Negative 02/18/2025 8:33 AM EDT [facility] Specimen Adequacy Satisfactory for evaluation, endocervical/newton sformation zone component present 02/18/2025 8:33 AM EDT [facility] Pap Methodology Liquid Based Pap Test 02/18/2025 8:33 AM EDT [facility] Disclaimer The Pap test is a screening test which carries an inherent false negative rate. These test results should be correlated with the patient's clinical findings and history. This Pap test was processed using an automated screening system. Technical cytopathology services provided by [facility], at [address] [place] [address] (CLIA # [id number]/Mayra Barragan MD, Trauma Director.) 02/18/2025 8:33 AM EDT [facility] Console Pap Interpretation Reported 02/18/2025 8:33 AM T [facility] Brushing/Spatula Vaginal structure / Unknown 02/12/2025 12:00 PM EDT 02/13/2025 7:05 AM EDT us Praveen Gloria MD LAB CYTOLOGY ORDERABLES Final Result [facility] [address] [place] [address], documented in this encounter Visit Diagnoses Diagnosis Encounter for gynecological examination (general) (routine) without abnormal findings documented in this encounter Care Teams Heat Sealing Machine Operator Relationship Specialty Start Date End Date Gertrude Mahan MD PCP - General Internal Medicine 02/13/25 documented as of this encounter
[2025-03-21 13:59] VITALS: BP 142/77; PULSE 75
[2025-03-21 14:00] VITALS: BP 129/79; PULSE 76
[2025-03-21 14:01] VITALS: BP 115/67; PULSE 76
--- NOTE | 2025-03-21 14:10 | PC.NURSE ---
pt medicated per order
[2025-03-21 14:17] VITALS: BP 115/67; PULSE 76; RESP 18; TEMP -17.7; TEMP 0; O2SAT 96
== END 2025-03-21 14:18 | disposition home or self-care (01) ==
PROVIDERS: Physician Assistant Medical; Emergency Provider Emergency Medicine Emergency Medical Services; PCP Internal Medicine
DX: H81.10 Benign paroxysmal vertigo, unspecified ear (principal); R11.2 Nausea with vomiting, unspecified; R94.31 Abnormal electrocardiogram [ECG] [EKG]; R19.7 Diarrhea, unspecified; Z03.818 Encounter for observation for suspected exposure to other biological agents ruled out; Z79.899 Other long term (current) drug therapy
CPT/HCPCS: 36415; 70450; 80053; 81003; 83735; 84484; 85025; 87637; 93005; 99284; 99285

== ENCOUNTER → 2025-03-21 11:30 | Outpatient (BNV) | payer MEDICARE, SELFPAY | PROVIDERS: Emergency Provider Emergency Medicine Emergency Medical Services; PCP Internal Medicine; Visit Provider Internal Medicine Cardiovascular Disease | DX: R42 Dizziness and giddiness (principal) | CPT/HCPCS: 93010 ==

== ENCOUNTER → 2025-03-21 11:30 | Outpatient (BNV) | payer MEDICARE, SELFPAY | PROVIDERS: PCP Internal Medicine; Visit Provider Radiology Diagnostic Radiology | DX: R42 Dizziness and giddiness (principal) | CPT/HCPCS: 70450 ==

== ENCOUNTER 2025-03-27 10:16 | Outpatient (REF) | payer MEDICARE, SELFPAY ==
--- NOTE | ~2025-03-27 | XR_ITS ---
EXAMINATION: XR CHEST CLINICAL INFORMATION: R05.9 - Cough, unspecified COMPARISON: 09/01/2018. TECHNIQUE: PA view of the chest was obtained. FINDINGS: The cardiac, hilar, and mediastinal contours are normal. The lungs are clear bilaterally. No pneumothorax or effusion. No focal osseous or soft tissue abnormality. XR/XR chest 1V IMPRESSION: No active pulmonary disease. Normal chest. Electronically signed by: Jozfe Mccloud MD 03/27/2025 12:28 PM EDT
== END 2025-03-27 10:17 | disposition home or self-care (01) ==
LOC: HO.HMGCX 10:16
PROVIDERS: PCP Internal Medicine; Visit Provider Internal Medicine
DX: R05.9 Cough, unspecified (principal); I10 Essential (primary) hypertension; E78.5 Hyperlipidemia, unspecified
CPT/HCPCS: 71045; 96127; 99212

== ENCOUNTER 2025-03-27 10:16 | Outpatient (AMB) | payer MEDICARE, SELFPAY ==
--- OUTSIDE RECORDS SUMMARY | 2025-03-27 10:51 | XMS_ITS | Encounter Summary ---
Author Organization [facility] Address [address] [place] [address] Care Team Providers Care Supervisor Kennel Name Role Phone Gertrude Mahan MD Primary Care Provider [phone] Encounter Details Date Type Department Care Team (Latest Contact Info) Description 02/13/2025 Lab Requisition [facility] - Main Lab [address] [facility] [place] [employer] [place] [address] Praveen Gloria MD [address] [address] Encounter for gynecological examination (general) [...] lesion or malignancy 02/18/2025 8:[address] [facility] General Categorization Negative 02/18/2025 8:[address] [facility] Specimen Adequacy Satisfactory for evaluation, endocervical/newton sformation zone component present 02/18/2025 8:[address] [facility] Pap Methodology Liquid Based Pap Test 02/18/2025 8:[address] [facility] Disclaimer The Pap test is a screening test which carries an inherent false negative rate. These test results should be correlated with the patient's clinical findings and history. This Pap test was processed using an automated screening system. Technical cytopathology services provided by [facility], at [address] [place] [address] (CLIA # [id number]/Mayra Barragan MD, Marine Diesel Technician.) 02/18/2025 8:[address] [facility] Console Pap Interpretation Reported 02/18/2025 8:[address] [facility] Brushing/Spatula Vaginal structure / Unknown 02/12/2025 12:00 PM EDT 02/13/2025 7:05 AM EDT us Praveen Gloria MD LAB CYTOLOGY ORDERABLES Final Result [facility] [address] [place] [address], documented in this encounter Visit Diagnoses Diagnosis Encounter for gynecological examination (general) (routine) without abnormal findings documented in this encounter Care Teams Supervisor Kennel Relationship Specialty Start Date End Date Gertrude Mahan MD PCP - General Internal Medicine 02/13/25 documented as of this encounter
--- OUTSIDE RECORDS SUMMARY | 2025-03-27 10:51 | XMS_ITS | Patient Health Record ---
[facility] Address [address] [place] [address] Care Team Providers Care Business Analytics Manager Name Role Phone Gertrude Mahan MD Primary Care Provider Jose Peters Unavailable [phone] Allergies Allergen (clinical drug ingredient) Drug/Non Drug Allergy documented on EMR Reaction Allergy Type Onset Date Status naproxen Naproxen stomach upset Drug Allergy Act lili Reason For Referral No Information Medications Medication SIG (Take, Route, Frequency, Duration) Notes Start Date End Date Status Work Note . . . patient out of w ork until 06/16/20 due to foot surgery 06/11/2020 Active Atorvastatin Calcium 10 MG 1 tablet Oral ly Once a day; Duration: 30 day(s) Active Benazepril HCl 10 MG 1 tablet Orally Onc e a day; Duration: 30 day(s) Active Citalopram Hydrobromide 20 MG 1 tablet Orally Once a day; Duration: 30 day(s) Active Gabapentin 300 MG 1 capsule Orally Onc e a day; Duration: 30 day(s) Active Osteo Bi-Flex Adv Double St - as directed Orally Active Qunol Ultra CoQ10 100-150 MG-UNIT as directed Orally Active Ibuprofen 800 MG 1 tablet with food o r milk as needed Orally Three times a day Active Vagifem 10 MCG 1 tablet Vaginal Two times a Week; Duration: 30 day(s) Active Social History Tobacco Use: Social History Observation Description Date Details (start date - stop date) Never Smoker NA - NA Tobacco Use/Smoking Question Answer Notes Are you a: nonsmoker Additional Findings: Tobacco Non-User Current no n-smoker Alcohol Screen Question Answer Notes Did you have a drink containing alcohol in the p ast year? No Points 0 Interpretation Negative Tobacco use other than smoking: Question Answer Notes Are you an other tobacco user? No Plan Of Treatment No Information Insurance Providers Payer Name Payer Address Payer Phone Subscriber Number Group Number Insured Name Patient Relationship to Insured Coverage Start Date Coverage End Date AARP Medicare Complete [address] [address] [place] [address] [id number] Donal Snow Self - patient is the insured Medical (General) History Medical History History ICD Code CAD (Cholesterol) Fibromyalgia High blood pressure Poor circulation Sinus conditions Surgical History Surgery Date(Month/Year) histerectomy 2003 mole removed 2003
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
[2025-03-27 10:55] VITALS: BP 120/70; PULSE 75; RESP 18; TEMP 36.7; O2SAT 99; BMI 25.4
== END 2025-03-27 12:28 | disposition home or self-care (01) ==
LOC: HO.HMCC 10:16
PROVIDERS: PCP Internal Medicine; Visit Provider Internal Medicine
DX: I10 Essential (primary) hypertension (principal); E78.5 Hyperlipidemia, unspecified

== ENCOUNTER → 2025-03-27 11:41 | Outpatient (BNV) | payer MEDICARE, SELFPAY | PROVIDERS: PCP Internal Medicine; Visit Provider Radiology Diagnostic Radiology | DX: R05.9 Cough, unspecified (principal) | CPT/HCPCS: 71045 ==

== ENCOUNTER 2025-07-05 08:19 | Outpatient (REF) | payer MEDICARE, SELFPAY ==
--- OUTSIDE RECORDS SUMMARY | 2025-07-05 08:30 | XMS_ITS | Encounter Summary ---
Author Organization [facility] Address [address] [place] [address] Care Team Providers Care Lead Massage Therapist Name Role Phone Gertrude Mahan MD Primary Care Provider [phone] Encounter Details Date Type Department Care Team (Latest Contact Info) Description 02/13/2025 Lab Requisition [facility] - Main Lab [address] [facility] [place] [address] Praveen Gloria MD [address] [address] Encounter for gynecological examination (general) [...] screening system. Technical cytopathology services provided by [facility], at [address] [place] [address] (CLIA # [id number]/Mayra Barragan MD, Contact Center Engineer.) 02/18/2025 8:33 AM EDT [facility] Console Pap Interpretation Reported 02/18/2025 8:33 AM T [facility] Brushing/Spatula Vaginal structure / Unknown 02/12/2025 12:00 PM EDT 02/13/2025 7:05 AM EDT us Praveen Gloria MD LAB CYTOLOGY ORDERABLES Final Result [facility] [address] [place] [address], documented in this encounter Visit Diagnoses Diagnosis Encounter for gynecological examination (general) (routine) without abnormal findings documented in this encounter Care Teams Lead Massage Therapist Relationship Specialty Start Date End Date Gretrude Mahan MD PCP - General Internal Medicine 02/13/25 documented as of this encounter
--- OUTSIDE RECORDS SUMMARY | 2025-07-05 08:30 | XMS_ITS | Patient Health Record ---
[facility] Address [address] [facility] [place] [address] Care Team Providers Care Footwear Sales Representative Name Role Phone Gertrude Mahan MD Primary Care Provider Unavaila Jose Ibarra Unavailable [phone] Allergies Allergen (clinical drug ingredient) Drug/Non Drug [...] End Date AARP Medicare Complete [address] [address] [place] [address] [id number] Donal Snow Self - patient is the insured Medical (General) History Medical History History ICD Code CAD (Cholesterol) Fibromyalgia High blood pressure Poor circulation Sinus conditions Surgical History Surgery Date(Month/Year) histerectomy 2003 mole removed 2003
--- OUTSIDE RECORDS SUMMARY | 2025-07-05 08:31 | XMS_ITS | Clinical Summary ---
Author Organization [address] [facility] Address [address] [place] [address] Phone Care Team Providers Care New Car Make Ready Worker Name Role Phone Gertrude Mahan MD Primary Care Provider [phone] Social History Tobacco Use Types Packs/Day Years Used Date Smoking Tobacco: Never Assessed Comments Unknown Sex and Gender Information Value Date Recorded Sex Assigned at Not on file Legal Sex Female 6:14 PM EST Gender Identity Not on file Sexual Orientation Not on file Plan of Treatment Health Maintenance Due Date Last Done Comments Breast Cancer Screening 1955 Colorectal Cancer Screening: Colonoscopy 1955 DTaP,Tdap,and Td Vaccines (1 - Tdap) 02/17/1972 Pneumococcal Vaccine: 50+ Ye ars (1 of 1 - PCV) 2003 Zoster Vaccines (1 of 2) 2003 Depression Screening 08/22/2024 Falls Risk Assessment 02/14/2025 Hepatitis C Screening 02/14/2025 Medicare Annual Wellness Visit 02/14/2025 Osteoporosis Screening (Bone Density Screening) 02/14/2025 Social Influencers of Health Screening 02/14/2025 COVID-19 Vaccine ( - 2024-2 6 season) 2025 Influenza Vaccine (#1) 2025 RSV Immunization Adult Patie nts (1 - 1-dose 75+ series) 02/17/2028 HIB Vaccines Aged Out No longer eligi ble based on patient's age to complete this topic HPV Vaccines Aged Out No longer eligi ble based on patient's age to complete this topic Hepatitis A Vaccines Aged Out No long er eligible based on patient's age to complete this topic Hepatitis B Vaccines Aged Out No long er eligible based on patient's age to complete this topic IPV Vaccines Aged Out No longer eligi ble based on patient's age to complete this topic MMR Vaccines Aged Out No longer eligi ble based on patient's age to complete this topic Meningococcal ACWY Vaccine Aged Out N o longer eligible based on patient's age to complete this topic Meningococcal B Vaccine Aged Out No l onger eligible based on patient's age to complete this topic RSV Immunization Patients Un virgen 20 months Aged Out No longer eligible b ased on patient's age to complete this topic Varicella Vaccines Aged Out No longer eligible based on patient's age to complete this topic Insurance [place] Care Teams New Car Make Ready Worker Relationship Specialty Start Date End Date Gertrude Mahan MD PCP - General Internal Medicine 02/13/25
[2025-07-05 10:26] LABS: MANUAL DIFF FLAG NO
[2025-07-05 10:38] LABS: Hematocrit 43.5 % (37.0-47.0); Hemoglobin 14.7 g/dl (12.0-16.0); Imm Gran Abs Auto 0.03 X10*3/uL (0.00-0.03); Imm Gran Pct Auto 0.5 % (0.0-0.4); Lymphocytes Absolute Auto 2.3 X10*3/uL (1.2-4.9); Mean Corpuscular HGB Conc 33.8 g/dl (31.0-35.0); Mean Corpuscular Hemoglobin 31.6 pg (27.0-33.0); Mean Corpuscular Volume 93.5 fL (80.0-98.0); NRBC Abs Auto 0.000 X10*3/uL (0.0-0.012); NRBC Pct Auto 0.0 /100WBC (0.0-0.2); Platelet Count 206 X10*3/uL (160-400); Red Blood Count 4.65 X10*6/uL (4.20-5.50); White Blood Count 5.9 X10*3/uL (4.8-10.8)
[2025-07-05 11:07] LABS: Alanine Aminotransferase 21 U/L (0-31); Albumin Level 4.6 g/dL (3.5-5.0); Alkaline Phosphatase 59 U/L (39-117); Anion Gap 12 (12-20); Aspartate Amino Transferase 24 U/L (5-31); Blood Urea Nitrogen 15 mg/dL (9-16); Calcium 9.0 mg/dL (8.4-10.2); Carbon Dioxide 28 mmol/L (22-29); Chloride 107 mmol/L (96-108); Cholesterol 166 mg/dL (<200); Estimated Glomerular Filt Rate > 60; HDL Cholesterol 44 mg/dL (>40); Potassium 4.7 mmol/L (3.3-5.1); Sodium 142 mmol/L (135-145); Total Protein 6.9 g/dL (6.5-8.0); Triglycerides 84 mg/dL (<150)
== END 2025-07-05 08:20 | disposition home or self-care (01) ==
LOC: HO.HMGCLDS 08:19
PROVIDERS: PCP Internal Medicine; Visit Provider Internal Medicine
DX: Z00.00 Encounter for general adult medical examination without abnormal findings (principal); E55.9 Vitamin D deficiency, unspecified; D12.6 Benign neoplasm of colon, unspecified; I10 Essential (primary) hypertension; E78.5 Hyperlipidemia, unspecified
CPT/HCPCS: 36415; 80053; 80061; 82306; 85025

== ENCOUNTER 2025-07-12 11:52 | Outpatient (AMB) | payer MEDICARE, SELFPAY ==
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
--- OUTSIDE RECORDS SUMMARY | 2025-07-12 12:35 | XMS_ITS | Encounter Summary ---
Author Organization [facility] Address [address] [place] [address] Care Team Providers Care Staking Technician Name Role Phone Gertrude Mahan MD Primary Care Provider [phone] Encounter Details Date Type Department Care Team (Latest Contact Info) Description 02/13/2025 Lab Requisition [facility] - Main Lab [address] [facility] [place] [address] Praveen Gloria MD [address] [address] Encounter for gynecological examination (general) [...] lesion or malignancy 02/18/2025 8:33 AM EDT [facility] General Categorization Negative 02/18/2025 8:33 AM EDT [facility] Specimen Adequacy Satisfactory for evaluation, endocervical/newton sformation zone component present 02/18/2025 8:33 AM EDT [facility] Pap Methodology Liquid Based Pap Test 02/18/2025 8:33 AM EDT [facility] Disclaimer The Pap test is a screening test which carries an inherent false negative rate. These test results should be correlated with the patient's clinical findings and history. This Pap test was processed using an automated screening system. Technical cytopathology services provided by [facility], at [address] [place] [address] (CLIA # [id number]/Mayra Barragan MD, Grinding Room Inspector.) 02/18/2025 8:33 AM EDT [facility] Console Pap Interpretation Reported 02/18/2025 8:33 AM T [facility] Brushing/Spatula Vaginal structure / Unknown 02/12/2025 12:00 PM EDT 02/13/2025 7:05 AM EDT us Praveen Gloria MD LAB CYTOLOGY ORDERABLES Final Result [facility] [address] [place] [address], documented in this encounter Visit Diagnoses Diagnosis Encounter for gynecological examination (general) (routine) without abnormal findings documented in this encounter Care Teams Staking Technician Relationship Specialty Start Date End Date Gertrude Mahan MD PCP - General Internal Medicine 02/13/25 documented as of this encounter
--- OUTSIDE RECORDS SUMMARY | 2025-07-12 12:35 | XMS_ITS | Clinical Summary ---
Author Organization [address] [facility] Address [address] [place] [address] Phone Care Team Providers Care Boiler Attendant Name Role Phone Gertrude Mahan MD Primary Care Provider [phone] Social History Tobacco Use Types Packs/Day Years [...] [place] Care Teams Boiler Attendant Relationship Specialty Start Date End Date Gertrude Mahan MD PCP - General Internal Medicine 02/13/25
[2025-07-12 12:38] VITALS: BP 126/70; PULSE 75; RESP 16; TEMP 36.6; O2SAT 98; BMI 25.4
== END 2025-07-12 13:21 | disposition home or self-care (01) ==
PROVIDERS: PCP Internal Medicine; Visit Provider Internal Medicine
DX: I10 Essential (primary) hypertension (principal); E55.9 Vitamin D deficiency, unspecified; E78.5 Hyperlipidemia, unspecified

== ENCOUNTER → 2025-07-12 11:52 | Outpatient (BNVA) | payer MEDICARE, SELFPAY | PROVIDERS: PCP Internal Medicine; Visit Provider Internal Medicine | DX: I10 Essential (primary) hypertension (principal); E55.9 Vitamin D deficiency, unspecified; E78.5 Hyperlipidemia, unspecified | CPT/HCPCS: 99212 ==